=== PATIENT | female | born 1950 | race Caucasian/White ===

== ENCOUNTER → 2017-11-12 11:44 | Outpatient (CLI) | payer MEDICARE, OTHER, SELFPAY ==
[2017-11-12 12:37] LABS: Absolute Lymphocyte Count 1.28 X10^3/ul (0.83-4.51); Absolute Neutrophil Count 4.8 X10^3/uL (2.0-7.7); Basophil# 0.01 X10^3/uL; Basophil% 0.2 % (0-1); Eosinophil# 0.05 X10^3/uL; Eosinophils% 0.8 % (0-5); Hematocrit 41.1 % (37-47); Hemoglobin 14.1 g/dl (12.0-15.0); Lymphocyte # 1.28 X10^3/ul (4.0); Lymphocyte % 19.6 % (19-41); Mean Corp Hgb Conc 34.3 g/gl (32-36); Mean Corpuscular Hgb 29.1 pg (27.0-32.0); Mean Corpuscular Volume 84.9 fL (81-99); Mean Platelet Vol. 9.9 fl (6.2-12.0); Monocyte# 0.39 X10^3/uL; Neutrophil % 73.2 % (47-70); Platelet Count 200 K/mm3 (150-450); RBC Distribution Width CV 13.4 % (11.6-14.6); RBC Distribution Width SD 41.7 fl (35.1-43.9); Red Blood Count 4.84 M/mm3 (4.2-5.4); White Blood Count 6.5 K/mm3 (4.4-11.0)
[2017-11-12 12:39] LABS: POSITIVE COUNT NO; POSITIVE DIFFERENTIAL NO; POSITIVE MORPHOLOGY NO
[2017-11-12 12:58] LABS: ALB/GLOB Ratio 1.1 RATIO (0.9-2.4); AST(SGOT) 17 U/L (15-37); Alanine Aminotransfer ALT/SGPT 25 U/L (13-56); Albumin, Serum 3.7 g/dL (3.2-5.0); Alkaline Phosphatase 92 U/L (45-117); Anion Gap 6 (5-15); BUN 18 mg/dL (7-18); Calcium,Total 9.1 mg/dL (8.5-10.1); Chloride 97 mmol/L (98-107); Creatinine, Serum 0.78 mg/dL (0.55-1.02); EST Glomerular Filtration Rate 77 mL/min (>60); Est Glom Filt Rate - Afr Amer 94 mL/min (>60); Globulin 3.4 g/dL (2.2-4.2); Glucose 101 mg/dL (74-106); Potassium 4.9 mmol/L (3.5-5.1); Protein, Total 7.1 g/dL (6.4-8.2); Sodium Level 134 mmol/L (136-145); Thyroid Stim Hormone (TSH) 0.77 uIU/mL (0.358-3.74)
[2017-11-12 13:16] LABS: Vitamin D,25 Hydroxy 57.4 ng/mL (29.95-100.01)
[2017-11-13 10:10] LABS: Hep C Antibodies <0.1 s/co ratio (0.0-0.9)
== END ==
PROVIDERS: Family Provider Family Medicine Geriatric Medicine; PCP Family Medicine Geriatric Medicine; Visit Provider Family Medicine Geriatric Medicine
DX: I10 Essential (primary) hypertension (principal); E55.9 Vitamin D deficiency, unspecified; Z13.89 Encounter for screening for other disorder
CPT/HCPCS: 36415; 80053; 82306; 84443; 85025; 86803

== ENCOUNTER → 2018-05-13 13:15 | Outpatient (CLI) | payer MEDICARE, OTHER, SELFPAY ==
[2018-05-13 17:26] LABS: Absolute Lymphocyte Count 1.35 X10^3/ul (0.83-4.51); Absolute Neutrophil Count 3.5 X10^3/uL (2.0-7.7); Basophil# 0.02 X10^3/uL; Basophil% 0.4 % (0-1); Eosinophil# 0.13 X10^3/uL; Eosinophils% 2.4 % (0-5); Hematocrit 38.9 % (37-47); Hemoglobin 13.5 g/dl (12.0-15.0); Lymphocyte # 1.35 X10^3/ul (4.0); Lymphocyte % 24.7 % (19-41); Mean Corp Hgb Conc 34.7 g/gl (32-36); Mean Corpuscular Hgb 29.7 pg (27.0-32.0); Mean Corpuscular Volume 85.5 fL (81-99); Mean Platelet Vol. 10.4 fl (6.2-12.0); Monocyte% 9.1 % (0-10); Neutrophil # 3.46 X10^3/uL (2.7-7.7); Neutrophil % 63.2 % (47-70); Platelet Count 231 K/mm3 (150-450); RBC Distribution Width CV 13.3 % (11.6-14.6); RBC Distribution Width SD 40.9 fl (35.1-43.9); Red Blood Count 4.55 M/mm3 (4.2-5.4); White Blood Count 5.5 K/mm3 (4.4-11.0)
[2018-05-13 17:39] LABS: AST(SGOT) 17 U/L (15-37); Alanine Aminotransfer ALT/SGPT 24 U/L (13-56); Albumin, Serum 3.4 g/dL (3.2-5.0); Alkaline Phosphatase 84 U/L (45-117); Anion Gap 9 (5-15); BUN 14 mg/dL (7-18); BUN/Creat Ratio 17.5 RATIO (10-20); Calcium,Total 8.5 mg/dL (8.5-10.1); Chloride 97 mmol/L (98-107); EST Glomerular Filtration Rate 76 mL/min (>60); Est Glom Filt Rate - Afr Amer 92 mL/min (>60); Globulin 3.3 g/dL (2.2-4.2); Glucose 89 mg/dL (74-106); Potassium 4.3 mmol/L (3.5-5.1); Protein, Total 6.7 g/dL (6.4-8.2); Sodium Level 134 mmol/L (136-145); Thyroid Stim Hormone (TSH) 0.93 uIU/mL (0.358-3.74)
[2018-05-13 17:44] LABS: Vitamin D,25 Hydroxy 43.8 ng/mL (29.95-100.01)
[2018-05-13 17:46] LABS: POSITIVE COUNT NO; POSITIVE DIFFERENTIAL NO; POSITIVE MORPHOLOGY NO
== END ==
PROVIDERS: Family Provider Family Medicine Geriatric Medicine; PCP Family Medicine Geriatric Medicine; Visit Provider Family Medicine Geriatric Medicine
DX: I10 Essential (primary) hypertension (principal); E55.9 Vitamin D deficiency, unspecified
CPT/HCPCS: 36415; 80053; 82306; 84443; 85025

== ENCOUNTER → 2018-11-15 | Outpatient (CLI) | payer MEDICARE, OTHER, SELFPAY ==
[2018-11-15 12:43] LABS: Absolute Lymphocyte Count 1.28 X10^3/ul (0.83-4.51); Absolute Neutrophil Count 5.6 X10^3/uL (2.0-7.7); Basophil# 0.02 X10^3/uL; Basophil% 0.3 % (0-1); Eosinophil# 0.15 X10^3/uL; Hemoglobin 14.2 g/dl (12.0-15.0); Lymphocyte # 1.28 X10^3/ul (4.0); Lymphocyte % 16.8 % (19-41); Mean Corp Hgb Conc 34.6 g/gl (32-36); Mean Corpuscular Hgb 29.1 pg (27.0-32.0); Mean Platelet Vol. 9.7 fl (6.2-12.0); Monocyte# 0.51 X10^3/uL; Monocyte% 6.7 % (0-10); Neutrophil # 5.64 X10^3/uL (2.7-7.7); Neutrophil % 74.1 % (47-70); Platelet Count 226 K/mm3 (150-450); Red Blood Count 4.88 M/mm3 (4.2-5.4); White Blood Count 7.6 K/mm3 (4.4-11.0)
[2018-11-15 12:48] LABS: POSITIVE COUNT NO; POSITIVE DIFFERENTIAL NO; POSITIVE MORPHOLOGY NO
[2018-11-15 13:17] LABS: Vitamin D,25 Hydroxy 55.9 ng/mL (29.95-100.01)
[2018-11-15 13:34] LABS: ALB/GLOB Ratio 1.1 RATIO (0.9-2.4); AST(SGOT) 18 U/L (15-37); Alanine Aminotransfer ALT/SGPT 23 U/L (13-56); Albumin, Serum 3.7 g/dL (3.2-5.0); Alkaline Phosphatase 97 U/L (45-117); Anion Gap 6 (5-15); BUN 16 mg/dL (7-18); BUN/Creat Ratio 20.1 RATIO (10-20); Calcium,Total 8.9 mg/dL (8.5-10.1); Chloride 97 mmol/L (98-107); EST Glomerular Filtration Rate 76 mL/min (>60); Est Glom Filt Rate - Afr Amer 92 mL/min (>60); Globulin 3.4 g/dL (2.2-4.2); Glucose 95 mg/dL (74-106); Potassium 4.3 mmol/L (3.5-5.1); Protein, Total 7.1 g/dL (6.4-8.2); Sodium Level 132 mmol/L (136-145); Thyroid Stim Hormone (TSH) 0.91 uIU/mL (0.358-3.74)
== END | disposition home or self-care (01) ==
PROVIDERS: Family Provider Family Medicine Geriatric Medicine; PCP Family Medicine Geriatric Medicine; Referring Provider Family Medicine Geriatric Medicine; Visit Provider Family Medicine Geriatric Medicine
DX: I10 Essential (primary) hypertension (principal); E55.9 Vitamin D deficiency, unspecified
CPT/HCPCS: 36415; 80053; 82306; 84443; 85025

== ENCOUNTER → 2019-02-26 | Outpatient (CLI) | payer MEDICARE, OTHER, SELFPAY ==
[2019-02-26 17:09] LABS: Absolute Lymphocyte Count 1.27 X10^3/uL (0.83-4.51); Absolute Neutrophil Count 5.4 X10^3/uL (2.0-7.7); Basophil# 0.02 X10^3/uL; Basophil% 0.3 % (0-1); Eosinophil# 0.09 X10^3/uL; Eosinophils% 1.2 % (0-5); Hematocrit 39.5 % (37-47); Hemoglobin 13.7 g/dL (12.0-15.0); Lymphocyte # 1.27 X10^3/ul (4.0); Lymphocyte % 17.3 % (19-41); Mean Corp Hgb Conc 34.7 g/dL (32-36); Mean Corpuscular Hgb 29.8 pg (27.0-32.0); Mean Corpuscular Volume 85.9 fL (81-99); Mean Platelet Vol. 10.1 fl (6.2-12.0); Monocyte# 0.53 X10^3/uL; Monocyte% 7.2 % (0-10); NRBC Flagged by Analyzer 0 % (0-5); Neutrophil # 5.39 X10^3/uL (2.7-7.7); Neutrophil % 73.6 % (47-70); Platelet Count 244 K/mm3 (150-450); RBC Distribution Width CV 12.4 % (11.6-14.6); RBC Distribution Width SD 38.5 fl (35.1-43.9); White Blood Count 7.3 K/mm3 (4.4-11.0)
[2019-02-26 17:27] LABS: Anion Gap 6 (5-15); BUN 16 mg/dL (7-18); BUN/Creat Ratio 21.9 RATIO (10-20); Chloride 96 mmol/L (98-107); Creatinine, Serum 0.73 mg/dL (0.55-1.02); EST Glomerular Filtration Rate 84 mL/min (>60); Est Glom Filt Rate - Afr Amer 101 mL/min (>60); Glucose 95 mg/dL (74-106); Potassium 3.9 mmol/L (3.5-5.1); Sodium Level 132 mmol/L (136-145)
== END | disposition home or self-care (01) ==
PROVIDERS: Family Provider Family Medicine Geriatric Medicine; PCP Family Medicine Geriatric Medicine; Visit Provider Family Medicine Geriatric Medicine
DX: I10 Essential (primary) hypertension (principal)
CPT/HCPCS: 36415; 80048; 85025

== ENCOUNTER → 2019-03-12 | Outpatient (CLI) | payer MEDICARE, OTHER, SELFPAY ==
--- NOTE | 2019-03-12 09:32 | STRESSREP ---
Stress Test Report Date: 03-12-19 Procedure: Exercise tolerance test/imaging study Indications: Abnormal ECG; preoperative cardiovascular evaluation Consent: Per the patient Procedure: The patient exercised on a Scout protocol for 7 minutes completing Stage II and 1 minute of Stage III achieving a peak heart rate of 127 bpm (85 % predicted maximal heart rate) with a peak blood pressure 174/84 mmHg and a peak MET capacity of 8 METs. The baseline ECG demonstrated normal sinus rhythm. The peak exercise ECG demonstrated no obvious ECG changes. There was a rare PAC pretest. The functional capacity was considered good. There was no complaint of chest discomfort during exercise or recovery. The examination was discontinued secondary to dyspnea. Impression: 1. Technically adequate (percent predicted maximal heart rate greater than 85%) exercise tolerance test 2. Peak exercise ECG with no obvious ECG changes 3. There was a rare PAC pretest 4. Nuclear images pending Myocardial perfusion imaging study: Technique: The patient was injected with 9.3 mCi of technetium 99m Cardiolite and subsequently rest SPECT Cardiolite nuclear imaging was obtained in the horizontal long, vertical long, and short axis views. The patient exercised on a Scout protocol for 7 minutes completing Stage II and 1 minute of Stage III achieving a peak heart rate of 127 bpm (85 % predicted maximal heart rate) with a peak blood pressure 174/84 mmHg and a peak MET capacity of 8 METs. The patient was injected with 29.6 mCi of technetium 99m Cardiolite and subsequently stress SPECT Cardiolite nuclear imaging was obtained in the horizontal long, vertical long, and short axis views. A gated Cardiolite study at peak stress was obtained. Interpretation: Rest and stress SPECT Cardiolite nuclear imaging status post realignment, normalization, and attenuation correction, demonstrates the appearance at rest of areas of diminished tracer uptake in the distal anterior, anteroseptal, and anterior apical segments which appear to improve and/or normalize following stress. There is end systolic thickening and brightening. The gated Cardiolite study demonstrates myocardial thickening and inward wall motion. The reported LVEF is 78 %. Impression: 1. Rest and stress SPECT Cardiolite nuclear imaging demonstrate the appearance of myocardial perfusion changes at rest which appear to improve and/or normalize following stress appearing compatible with the effects of shifting soft tissue attenuation/artifact with no myocardial perfusion changes considered diagnostic for associated stress-induced myocardial ischemia. 2. The gated Cardiolite study reports an LVEF of 78 %. This note was generated with Dragon dictation software. It may contain incorrect words, spelling, and punctuation that were not noted in checking the note before signing.
== END | disposition home or self-care (01) ==
LOC: CVS 06:35
PROVIDERS: Family Provider Family Medicine Geriatric Medicine; PCP Family Medicine Geriatric Medicine; Referring Provider Family Medicine Geriatric Medicine; Visit Provider Family Medicine Geriatric Medicine
DX: R94.31 Abnormal electrocardiogram [ECG] [EKG] (principal)
CPT/HCPCS: 78452; 93017; A9500; A4216

== ENCOUNTER → 2019-05-12 | Outpatient (CLI) | payer MEDICARE, OTHER, SELFPAY ==
--- NOTE | 2019-05-12 15:44 | BI_ITS ---
MAMMOGRAPHY - BILATERAL SCREENING REASON FOR EXAM: Female, 69 years old. Routine annual screening examination. PERTINENT HISTORY: Non-contributory. TECHNIQUE: Digital bilateral breast poonam (3D mammographic acquisition) in the CC and MLO projections. 2-D mediolateral oblique (MLO) and craniocaudad (CC) views of both breasts were obtained. CAD: Full Field Digital Mammography with Computer Added Detection was performed. COMPARISON: Comparison is made with prior study dated May 04, 2017 and April 05, 2016. FINDINGS: Breast Composition: The breasts are heterogeneously dense, which may obscure small masses. There are no dominant masses or suspicious calcifications. Stable scattered benign-appearing macrocalcifications bilaterally. No other significant abnormalities are identified. There has been no significant change since the prior study. BI/SCREEN MAMM (CAD) W/POONAM BILAT IMPRESSION: Stable bilateral screening mammogram. Yearly follow-up mammogram recommended. (A) ASSESSMENT CATEGORY: BIRADS Category 2: Benign. A letter regarding these results will be sent to the patient by the facility within 30 days. Approximately 10% of breast cancers are not detected by mammography. A normal mammogram should not delay biopsy of a clinically suspicious abnormality. [id number] Electronically Signed: David Zheng, at 8:17 EST , Service support ,
== END | disposition home or self-care (01) ==
LOC: OPBI 15:43
PROVIDERS: Family Provider Family Medicine Geriatric Medicine; PCP Family Medicine Geriatric Medicine; Referring Provider Family Medicine Geriatric Medicine; Visit Provider Family Medicine Geriatric Medicine
DX: Z12.31 Encounter for screening mammogram for malignant neoplasm of breast (principal)
CPT/HCPCS: 77063; 77067

== ENCOUNTER → 2019-05-16 10:22 | Outpatient (CLI) | payer MEDICARE, OTHER, SELFPAY ==
[2019-05-16 12:25] LABS: Absolute Lymphocyte Count 1.32 X10^3/uL (0.83-4.51); Absolute Neutrophil Count 4.6 X10^3/uL (2.0-7.7); Basophil# 0.02 X10^3/uL; Basophil% 0.3 % (0-1); Eosinophil# 0.09 X10^3/uL; Eosinophils% 1.4 % (0-5); Hematocrit 41.3 % (37-47); Hemoglobin 14.2 g/dL (12.0-15.0); Lymphocyte # 1.32 X10^3/ul (4.0); Mean Corp Hgb Conc 34.4 g/dL (32-36); Mean Corpuscular Hgb 29.2 pg (27.0-32.0); Mean Platelet Vol. 9.8 fl (6.2-12.0); Monocyte% 7.6 % (0-10); NRBC Flagged by Analyzer 0 % (0-5); Neutrophil # 4.61 X10^3/uL (2.7-7.7); Neutrophil % 69.8 % (47-70); Platelet Count 252 K/mm3 (150-450); RBC Distribution Width CV 12.9 % (11.6-14.6); RBC Distribution Width SD 39.2 fl (35.1-43.9); Red Blood Count 4.86 M/mm3 (4.2-5.4); White Blood Count 6.6 K/mm3 (4.4-11.0)
[2019-05-16 12:51] LABS: Vitamin D,25 Hydroxy 55.8 ng/mL (29.95-100.01)
[2019-05-16 12:58] LABS: ALB/GLOB Ratio 1.2 RATIO (0.9-2.4); AST(SGOT) 16 U/L (15-37); Alanine Aminotransfer ALT/SGPT 24 U/L (13-56); Albumin, Serum 3.8 g/dL (3.2-5.0); Alkaline Phosphatase 84 U/L (45-117); Anion Gap 6 (5-15); BUN 14 mg/dL (7-18); BUN/Creat Ratio 18.4 RATIO (10-20); Chloride 99 mmol/L (98-107); Creatinine, Serum 0.76 mg/dL (0.55-1.02); EST Glomerular Filtration Rate 80 mL/min (>60); Est Glom Filt Rate - Afr Amer 96 mL/min (>60); Globulin 3.2 g/dL (2.2-4.2); Glucose 87 mg/dL (74-106); Potassium 4.2 mmol/L (3.5-5.1); Sodium Level 134 mmol/L (136-145); Thyroid Stim Hormone (TSH) 1.38 uIU/mL (0.358-3.74)
== END ==
PROVIDERS: Family Provider Family Medicine Geriatric Medicine; PCP Family Medicine Geriatric Medicine; Visit Provider Family Medicine Geriatric Medicine
DX: I10 Essential (primary) hypertension (principal); E55.9 Vitamin D deficiency, unspecified
CPT/HCPCS: 36415; 80053; 82306; 84443; 85025

== ENCOUNTER → 2019-05-30 14:40 | Outpatient (CLI) | payer MEDICARE, OTHER, SELFPAY ==
--- NOTE | 2019-05-30 14:56 | VDLE_ITS ---
Reason For Study: swelling RIGHT LEFT GSV is normal. CFV is compressible, spontaneous, phasic, CFV is compressible, spontaneous, phasic, competent, and demonstrates normal competent and demonstrates normal augmentation. augmentation. FV is compressible, spontaneous, phasic, competent and demonstrates normal augmentation. POP V is compressible, spontaneous, phasic, competent and demonstrates normal augmentation. T/P Trunk is compressible. PTV is compressible. RT PerV is compressible. Procedure Exam performed in department. The exam was diagnostic. A preliminary report was called and/or faxed to Dr. Anurag Starks. Interpretation Summary Deep veins of the right lower extremity are patent and compressible segmentally. There is no evidence of right lower extremity deep vein thrombosis. Valvular competence appears intact within the proximal deep venous system on the right . The right great saphenous vein appears patent and compressible segmentally. Ordering Physician: Anurag Starks Performed By: Reji Ocasio RVT
== END ==
PROVIDERS: Family Provider Family Medicine Geriatric Medicine; PCP Family Medicine Geriatric Medicine; Referring Provider Orthopaedic Surgery; Visit Provider Orthopaedic Surgery
DX: R22.41 Localized swelling, mass and lump, right lower limb (principal); M79.661 Pain in right lower leg
CPT/HCPCS: 93971

== ENCOUNTER → 2019-11-21 | Outpatient (CLI) | payer MEDICARE, OTHER, SELFPAY | END | disposition home or self-care (01) | LOC: POLAB3 10:07 → LAB.FUTURE 12:02 | PROVIDERS: PCP Family Medicine Geriatric Medicine; Visit Provider Family Medicine Geriatric Medicine | DX: E55.9 Vitamin D deficiency, unspecified (principal); I10 Essential (primary) hypertension ==

== ENCOUNTER → 2020-05-25 10:41 | Outpatient (CLI) | payer MEDICARE, OTHER, SELFPAY ==
[2020-05-25 12:32] LABS: Absolute Lymphocyte Count 0.95 X10^3/uL (0.83-4.51); Absolute Neutrophil Count 5.1 X10^3/uL (2.0-7.7); Basophil# 0.04 X10^3/uL; Basophil% 0.6 % (0-1); Eosinophil# 0.18 X10^3/uL; Eosinophils% 2.6 % (0-5); Hematocrit 40.4 % (37-47); Hemoglobin 13.5 g/dL (12.0-15.0); Lymphocyte # 0.95 X10^3/ul (4.0); Lymphocyte % 13.9 % (19-41); Mean Corp Hgb Conc 33.4 g/dL (32-36); Mean Corpuscular Hgb 29.3 pg (27.0-32.0); Mean Corpuscular Volume 87.6 fL (81-99); Mean Platelet Vol. 10.1 fl (6.2-12.0); Monocyte# 0.54 X10^3/uL; Monocyte% 7.9 % (0-10); NRBC Flagged by Analyzer 0 % (0-5); Neutrophil % 74.7 % (47-70); Platelet Count 222 K/mm3 (150-450); RBC Distribution Width CV 12.7 % (11.6-14.6); RBC Distribution Width SD 40.8 fl (35.1-43.9); Red Blood Count 4.61 M/mm3 (4.2-5.4); White Blood Count 6.8 K/mm3 (4.4-11.0)
[2020-05-25 12:46] LABS: Vitamin D,25 Hydroxy 51.6 ng/mL
[2020-05-25 12:58] LABS: ALB/GLOB Ratio 0.8 RATIO (0.9-2.4); AST(SGOT) 16 U/L (15-37); Alanine Aminotransfer ALT/SGPT 22 U/L (13-56); Albumin, Serum 3.3 g/dL (3.2-5.0); Alkaline Phosphatase 91 U/L (45-117); Anion Gap 3 (5-15); BUN 14 mg/dL (7-18); BUN/Creat Ratio 19.1 RATIO (10-20); Calcium,Total 9.1 mg/dL (8.5-10.1); Chloride 98 mmol/L (98-107); Creatinine, Serum 0.73 mg/dL (0.55-1.02); EST Glomerular Filtration Rate 83 mL/min (>60); Est Glom Filt Rate - Afr Amer 100 mL/min (>60); Globulin 4.1 g/dL (2.2-4.2); Glucose 88 mg/dL (74-106); Potassium 4.5 mmol/L (3.5-5.1); Protein, Total 7.4 g/dL (6.4-8.2); Sodium Level 132 mmol/L (136-145); Thyroid Stim Hormone (TSH) 1.55 uIU/mL (0.358-3.74)
== END ==
PROVIDERS: PCP Family Medicine Geriatric Medicine; Visit Provider Family Medicine Geriatric Medicine
DX: E55.9 Vitamin D deficiency, unspecified (principal); I10 Essential (primary) hypertension
CPT/HCPCS: 36415; 80053; 82306; 84443; 85025

== ENCOUNTER → 2020-06-04 13:51 | Outpatient (CLI) | payer MEDICARE, OTHER, SELFPAY ==
--- NOTE | 2020-06-04 13:53 | BI_ITS ---
MAMMOGRAPHY - BILATERAL SCREENING REASON FOR EXAM: Female, 70 years old. Routine annual screening examination. PERTINENT HISTORY: Non-contributory. TECHNIQUE: Digital bilateral breast poonam (3D mammographic acquisition) in the CC and MLO projections. 2-D mediolateral oblique (MLO) and craniocaudad (CC) views of both breasts were obtained. CAD: Full Field Digital Mammography with Computer Added Detection was performed. COMPARISON: Comparison is made with prior study dated 05/12/2019 and 05/04/2017. FINDINGS: Breast Composition: The breasts are heterogeneously dense, which may obscure small masses. There are no dominant masses or suspicious calcifications. No other significant abnormalities are identified. There has been no significant change since the prior study. BI/SCREEN MAMM (CAD) W/POONAM BILAT IMPRESSION: Stable bilateral screening mammogram. Yearly follow-up mammogram recommended. (A) ASSESSMENT CATEGORY: BIRADS Category 1: Negative. A letter regarding these results will be sent to the patient by the facility within 30 days. Approximately 10% of breast cancers are not detected by mammography. A normal mammogram should not delay biopsy of a clinically suspicious abnormality. [id number] Electronically Signed: David Zheng, at 15:06 EST , Service support ,
== END ==
PROVIDERS: PCP Family Medicine Geriatric Medicine; Referring Provider Family Medicine Geriatric Medicine; Visit Provider Family Medicine Geriatric Medicine
DX: Z12.31 Encounter for screening mammogram for malignant neoplasm of breast (principal)
CPT/HCPCS: 77063; 77067

== ENCOUNTER → 2020-12-09 10:29 | Outpatient (CLI) | payer MEDICARE, OTHER, SELFPAY ==
[2020-12-09 11:57] LABS: Absolute Lymphocyte Count 1.11 X10^3/uL (0.83-4.51); Absolute Neutrophil Count 3.5 X10^3/uL (2.0-7.7); Basophil# 0.03 X10^3/uL; Basophil% 0.6 % (0-1); Eosinophils% 1.9 % (0-5); Hematocrit 42.2 % (37-47); Hemoglobin 14.1 g/dL (12.0-15.0); Lymphocyte # 1.11 X10^3/ul (0.83-4.51); Lymphocyte % 21.2 % (19-41); Mean Corp Hgb Conc 33.4 g/dL (32-36); Mean Corpuscular Hgb 29.3 pg (27.0-32.0); Mean Corpuscular Volume 87.6 fL (81-99); Mean Platelet Vol. 9.7 fl (6.2-12.0); Monocyte# 0.44 X10^3/uL; Monocyte% 8.4 % (0-10); NRBC Flagged by Analyzer 0 % (0-5); Neutrophil # 3.53 X10^3/uL (2.7-7.7); Neutrophil % 67.5 % (47-70); Platelet Count 217 K/mm3 (150-450); RBC Distribution Width CV 12.6 % (11.6-14.6); RBC Distribution Width SD 39.9 fl (35.1-43.9); Red Blood Count 4.82 M/mm3 (4.2-5.4); White Blood Count 5.2 K/mm3 (4.4-11.0)
[2020-12-09 12:20] LABS: ALB/GLOB Ratio 1.1 RATIO (0.9-2.4); AST(SGOT) 21 U/L (15-37); Alanine Aminotransfer ALT/SGPT 28 U/L (13-56); Albumin, Serum 3.7 g/dL (3.2-5.0); Alkaline Phosphatase 85 U/L (45-117); Anion Gap 4 (5-15); BUN 16 mg/dL (7-18); BUN/Creat Ratio 18.3 RATIO (10-20); Calcium,Total 9.1 mg/dL (8.5-10.1); Chloride 102 mmol/L (98-107); Creatinine, Serum 0.88 mg/dL (0.55-1.02); EST Glomerular Filtration Rate 68 mL/min (>60); Est Glom Filt Rate - Afr Amer 82 mL/min (>60); Globulin 3.3 g/dL (2.2-4.2); Glucose 92 mg/dL (74-106); Potassium 4.6 mmol/L (3.5-5.1); Sodium Level 135 mmol/L (136-145); Thyroid Stim Hormone (TSH) 0.97 uIU/mL (0.358-3.74)
[2020-12-09 12:30] LABS: Vitamin D,25 Hydroxy 62.5 ng/mL
== END ==
PROVIDERS: PCP Family Medicine Geriatric Medicine; Visit Provider Family Medicine Geriatric Medicine
DX: I10 Essential (primary) hypertension (principal); E55.9 Vitamin D deficiency, unspecified
CPT/HCPCS: 36415; 80053; 82306; 84443; 85025

== ENCOUNTER → 2021-06-02 09:35 | Outpatient (CLI) | payer MEDICARE, OTHER, SELFPAY ==
[2021-06-02 12:06] LABS: Absolute Lymphocyte Count 1.09 X10^3/uL (0.83-4.51); Absolute Neutrophil Count 4.1 X10^3/uL (2.0-7.7); Basophil# 0.04 X10^3/uL; Basophil% 0.7 % (0-1); Eosinophil# 0.12 X10^3/uL; Hemoglobin 14.2 g/dL (12.0-15.0); Lymphocyte # 1.09 X10^3/ul (0.83-4.51); Lymphocyte % 18.4 % (19-41); Mean Corp Hgb Conc 34.6 g/dL (32-36); Mean Corpuscular Volume 86.5 fL (81-99); Mean Platelet Vol. 9.9 fl (6.2-12.0); Monocyte% 8.5 % (0-10); NRBC Flagged by Analyzer 0 % (0-5); Neutrophil # 4.13 X10^3/uL (2.7-7.7); Neutrophil % 69.9 % (47-70); Platelet Count 202 K/mm3 (150-450); RBC Distribution Width CV 12.8 % (11.6-14.6); RBC Distribution Width SD 40.2 fl (35.1-43.9); Red Blood Count 4.74 M/mm3 (4.2-5.4); White Blood Count 5.9 K/mm3 (4.4-11.0)
[2021-06-02 12:25] LABS: Vitamin D,25 Hydroxy 49.4 ng/mL
[2021-06-02 12:31] LABS: ALB/GLOB Ratio 0.9 RATIO (0.9-2.4); AST(SGOT) 22 U/L (15-37); Alanine Aminotransfer ALT/SGPT 31 U/L (13-56); Albumin, Serum 3.3 g/dL (3.2-5.0); Alkaline Phosphatase 91 U/L (45-117); Anion Gap 6 (5-15); BUN 15 mg/dL (7-18); BUN/Creat Ratio 17.3 RATIO (10-20); Calcium,Total 9.1 mg/dL (8.5-10.1); Chloride 102 mmol/L (98-107); Creatinine, Serum 0.87 mg/dL (0.55-1.02); EST Glomerular Filtration Rate 68 mL/min (>60); Est Glom Filt Rate - Afr Amer 83 mL/min (>60); Globulin 3.8 g/dL (2.2-4.2); Glucose 65 mg/dL (74-106); Potassium 4.6 mmol/L (3.5-5.1); Protein, Total 7.1 g/dL (6.4-8.2); Sodium Level 137 mmol/L (136-145); Thyroid Stim Hormone (TSH) 1.45 uIU/mL (0.358-3.74)
== END ==
PROVIDERS: PCP Family Medicine Geriatric Medicine; Visit Provider Family Medicine Geriatric Medicine
DX: E55.9 Vitamin D deficiency, unspecified (principal); I10 Essential (primary) hypertension
CPT/HCPCS: 36415; 80053; 82306; 84443; 85025

== ENCOUNTER → 2021-06-14 12:13 | Outpatient (CLI) | payer MEDICARE, OTHER, SELFPAY ==
--- NOTE | 2021-06-14 12:16 | BI_ITS ---
MAMMOGRAPHY - BILATERAL SCREENING REASON FOR EXAM: Female, 71 years old. Routine annual screening examination. PERTINENT HISTORY: Non-contributory. TECHNIQUE: Digital bilateral breast poonam (3D mammographic acquisition) in the CC and MLO projections. 2-D mediolateral oblique (MLO) and craniocaudad (CC) views of both breasts were obtained. CAD: Full Field Digital Mammography with Computer Added Detection was performed. COMPARISON: Comparison is made with prior study dated 06/04/2020 and 05/12/2019. FINDINGS: Breast Composition: The breasts are heterogeneously dense, which may obscure small masses. There are no dominant masses or suspicious calcifications. Stable benign-appearing bilateral axillary lymph nodes. No other significant abnormalities are identified. There has been no significant change since the prior study. BI/SCRN MAMM (CAD)W/POONAM BILAT IMPRESSION: Stable bilateral screening mammogram. Yearly follow-up mammogram recommended. (A) ASSESSMENT CATEGORY: BIRADS Category 2: Benign. A letter regarding these results will be sent to the patient by the facility within 30 days. Approximately 10% of breast cancers are not detected by mammography. A normal mammogram should not delay biopsy of a clinically suspicious abnormality. [id number] Electronically Signed: David Zheng MD at 13:05 EST , Service support ,
== END ==
PROVIDERS: PCP Family Medicine Geriatric Medicine; Referring Provider Family Medicine Geriatric Medicine; Visit Provider Family Medicine Geriatric Medicine
DX: Z12.31 Encounter for screening mammogram for malignant neoplasm of breast (principal)
CPT/HCPCS: 77063; 77067

== ENCOUNTER → 2021-12-12 | Outpatient (CLI) | payer MEDICARE, OTHER, SELFPAY ==
[2021-12-12 12:51] LABS: Absolute Neutrophil Count 3.3 X10^3/uL (2.0-7.7); Basophil# 0.02 X10^3/uL; Basophil% 0.4 % (0-1); Eosinophil# 0.04 X10^3/uL; Eosinophils% 0.8 % (0-5); Hematocrit 42.3 % (37-47); Hemoglobin 14.2 g/dL (12.0-15.0); Lymphocyte % 22.8 % (19-41); Mean Corp Hgb Conc 33.6 g/dL (32-36); Mean Corpuscular Hgb 29.4 pg (27.0-32.0); Mean Corpuscular Volume 87.6 fL (81-99); Mean Platelet Vol. 10.2 fl (6.2-12.0); Monocyte# 0.34 X10^3/uL; Monocyte% 7.1 % (0-10); NRBC Flagged by Analyzer 0 % (0-5); Neutrophil # 3.31 X10^3/uL (2.7-7.7); Neutrophil % 68.7 % (47-70); Platelet Count 218 K/mm3 (150-450); RBC Distribution Width CV 13.2 % (11.6-14.6); RBC Distribution Width SD 42.3 fl (35.1-43.9); Red Blood Count 4.83 M/mm3 (4.2-5.4); White Blood Count 4.8 K/mm3 (4.4-11.0)
[2021-12-12 12:53] LABS: Vitamin D,25 Hydroxy 70.2 ng/mL
[2021-12-12 13:45] LABS: ALB/GLOB Ratio 1.2 RATIO (0.9-2.4); AST(SGOT) 20 U/L (15-37); Alanine Aminotransfer ALT/SGPT 27 U/L (13-56); Albumin, Serum 3.6 g/dL (3.2-5.0); Alkaline Phosphatase 79 U/L (45-117); Anion Gap 6 (5-15); BUN 13 mg/dL (7-18); BUN/Creat Ratio 14.7 RATIO (10-20); Calcium,Total 9.1 mg/dL (8.5-10.1); Chloride 104 mmol/L (98-107); Creatinine, Serum 0.89 mg/dL (0.55-1.02); EST Glomerular Filtration Rate 66 mL/min (>60); Est Glom Filt Rate - Afr Amer 80 mL/min (>60); Glucose 88 mg/dL (74-106); Potassium 4.7 mmol/L (3.5-5.1); Protein, Total 6.6 g/dL (6.4-8.2); Sodium Level 137 mmol/L (136-145); Thyroid Stim Hormone (TSH) 0.65 uIU/mL (0.358-3.74)
== END | disposition home or self-care (01) ==
LOC: POLAB3 09:20
PROVIDERS: PCP Family Medicine Geriatric Medicine; Visit Provider Family Medicine Geriatric Medicine
DX: I10 Essential (primary) hypertension (principal); E55.9 Vitamin D deficiency, unspecified
CPT/HCPCS: 36415; 80053; 82306; 84443; 85025

== ENCOUNTER → 2022-06-12 | Outpatient (CLI) | payer MEDICARE, OTHER, SELFPAY ==
[2022-06-12 17:19] LABS: Absolute Lymphocyte Count 1.24 X10^3/uL (0.83-4.51); Basophil# 0.03 X10^3/uL; Basophil% 0.4 % (0-1); Eosinophils% 1.5 % (0-5); Hematocrit 42.7 % (37-47); Lymphocyte # 1.24 X10^3/ul (0.83-4.51); Mean Corp Hgb Conc 32.8 g/dL (32-36); Mean Corpuscular Hgb 28.9 pg (27.0-32.0); Mean Corpuscular Volume 88.2 fL (81-99); Mean Platelet Vol. 10.4 fl (6.2-12.0); Monocyte% 7.3 % (0-10); NRBC Flagged by Analyzer 0 % (0-5); Neutrophil % 72.5 % (47-70); Platelet Count 229 K/mm3 (150-450); RBC Distribution Width CV 13.6 % (11.6-14.6); Red Blood Count 4.84 M/mm3 (4.2-5.4); White Blood Count 6.9 K/mm3 (4.4-11.0)
[2022-06-12 17:27] LABS: Vitamin D,25 Hydroxy 45.2 ng/mL
[2022-06-12 17:40] LABS: AST(SGOT) 18 U/L (15-37); Alanine Aminotransfer ALT/SGPT 27 U/L (13-56); Albumin, Serum 3.4 g/dL (3.2-5.0); Alkaline Phosphatase 91 U/L (45-117); Anion Gap 8 (5-15); BUN 19 mg/dL (7-18); BUN/Creat Ratio 20.7 RATIO (10-20); Calcium,Total 8.6 mg/dL (8.5-10.1); Chloride 100 mmol/L (98-107); Creatinine, Serum 0.92 mg/dL (0.55-1.02); EST Glomerular Filtration Rate 64 mL/min (>60); Est Glom Filt Rate - Afr Amer 77 mL/min (>60); Globulin 3.3 g/dL (2.2-4.2); Glucose 84 mg/dL (74-106); Potassium 4.2 mmol/L (3.5-5.1); Protein, Total 6.7 g/dL (6.4-8.2); Sodium Level 135 mmol/L (136-145); Thyroid Stim Hormone (TSH) 0.83 uIU/mL (0.358-3.74)
== END | disposition home or self-care (01) ==
LOC: POLAB3 13:04
PROVIDERS: PCP Family Medicine Geriatric Medicine; Visit Provider Family Medicine Geriatric Medicine
DX: I10 Essential (primary) hypertension (principal); E55.9 Vitamin D deficiency, unspecified
CPT/HCPCS: 36415; 80053; 82306; 84443; 85025

== ENCOUNTER → 2022-06-15 | Outpatient (CLI) | payer MEDICARE, OTHER, SELFPAY ==
--- NOTE | 2022-06-15 13:46 | BI_ITS ---
MAMMOGRAPHY - BILATERAL SCREENING REASON FOR EXAM: Female, 72 years old. Routine annual screening examination. PERTINENT HISTORY: Non-contributory. TECHNIQUE: Digital bilateral breast poonam (3D mammographic acquisition) in the CC and MLO projections. 2-D mediolateral oblique (MLO) and craniocaudad (CC) views of both breasts were obtained. CAD: Full Field Digital Mammography with Computer Added Detection was performed. COMPARISON: Comparison is made with prior study dated 06/14/2021 and 06/04/2020. FINDINGS: Breast Composition: The breasts are heterogeneously dense, which may obscure small masses. There are no dominant masses or suspicious calcifications. No other significant abnormalities are identified. There has been no significant change since the prior study. BI/SCRN MAMM (CAD)W/POONAM BILAT IMPRESSION: Stable bilateral screening mammogram. Yearly follow-up mammogram recommended. (A) ASSESSMENT CATEGORY: BIRADS Category 1: Negative. A letter regarding these results will be sent to the patient by the facility within 30 days. Approximately 10% of breast cancers are not detected by mammography. A normal mammogram should not delay biopsy of a clinically suspicious abnormality. [id number] Electronically Signed: David Zheng MD at 14:34 EST ,
== END | disposition home or self-care (01) ==
LOC: OPBI 13:44
PROVIDERS: PCP Family Medicine Geriatric Medicine; Referring Provider Family Medicine Geriatric Medicine; Visit Provider Family Medicine Geriatric Medicine
DX: Z12.31 Encounter for screening mammogram for malignant neoplasm of breast (principal)
CPT/HCPCS: 77063; 77067

== ENCOUNTER → 2022-12-20 | Outpatient (CLI) | payer MEDICARE, OTHER, SELFPAY ==
[2022-12-20 11:42] LABS: Absolute Lymphocyte Count 1.27 X10^3/uL (0.83-4.51); Absolute Neutrophil Count 5.3 X10^3/uL (2.0-7.7); Basophil# 0.03 X10^3/uL; Basophil% 0.4 % (0-1); Eosinophil# 0.09 X10^3/uL; Eosinophils% 1.3 % (0-5); Hematocrit 44.3 % (37-47); Hemoglobin 14.9 g/dL (12.0-15.0); Lymphocyte # 1.27 X10^3/ul (0.83-4.51); Lymphocyte % 17.6 % (19-41); Mean Corp Hgb Conc 33.6 g/dL (32-36); Mean Corpuscular Hgb 29.6 pg (27.0-32.0); Mean Corpuscular Volume 88.1 fL (81-99); Mean Platelet Vol. 9.3 fl (6.2-12.0); Monocyte# 0.45 X10^3/uL; Monocyte% 6.3 % (0-10); NRBC Flagged by Analyzer 0 % (0-5); Neutrophil # 5.33 X10^3/uL (2.7-7.7); Platelet Count 220 K/mm3 (150-450); RBC Distribution Width CV 13.4 % (11.6-14.6); RBC Distribution Width SD 43.3 fl (35.1-43.9); Red Blood Count 5.03 M/mm3 (4.2-5.4); White Blood Count 7.2 K/mm3 (4.4-11.0)
[2022-12-20 12:13] LABS: Vitamin D,25 Hydroxy 59.4 ng/mL
[2022-12-20 12:25] LABS: ALB/GLOB Ratio 1.1 RATIO (0.9-2.4); AST(SGOT) 24 U/L (15-37); Alanine Aminotransfer ALT/SGPT 25 U/L (13-56); Albumin, Serum 3.7 g/dL (3.2-5.0); Alkaline Phosphatase 89 U/L (45-117); Anion Gap 2 (5-15); BUN 16 mg/dL (7-18); BUN/Creat Ratio 17.4 RATIO (10-20); Calcium,Total 8.9 mg/dL (8.5-10.1); Chloride 102 mmol/L (98-107); Creatinine, Serum 0.92 mg/dL (0.55-1.02); EST Glomerular Filtration Rate 64 mL/min (>60); Est Glom Filt Rate - Afr Amer 77 mL/min (>60); Globulin 3.5 g/dL (2.2-4.2); Glucose 104 mg/dL (74-106); Potassium 4.6 mmol/L (3.5-5.1); Protein, Total 7.2 g/dL (6.4-8.2); Sodium Level 134 mmol/L (136-145); Thyroid Stim Hormone (TSH) 1.46 uIU/mL (0.358-3.74)
== END | disposition home or self-care (01) ==
LOC: LAB 11:23
PROVIDERS: PCP Family Medicine Geriatric Medicine; Referring Provider Family Medicine Geriatric Medicine; Visit Provider Family Medicine Geriatric Medicine
DX: I10 Essential (primary) hypertension (principal); E55.9 Vitamin D deficiency, unspecified
CPT/HCPCS: 36415; 80053; 82306; 84443; 85025

== ENCOUNTER → 2023-06-28 | Outpatient (CLI) | payer MEDICARE, OTHER, SELFPAY ==
--- OUTSIDE RECORDS SUMMARY | 2023-06-28 11:45 | XMS RPT_ITS | CCD ---
Author Name Unknown Address [facility] [address] [place] [address] Organization [facility] Care Team Providers Care Mat Roller Name Role Phone TARAN MONROE DR Admitting Unavailable TARAN MONROE DR Attending Unavailable TARAN MONROE DR Primary Care Unavailable BLUE WHALEN MD Consulting Unavailable PROVIDER, UNKNOWN Consulting Unavailable PROVIDER, UNKNOWN Consulting Unavailable TARAN MONROE DR Admitting Unavailable TARAN MONROE DR Attending Unavailable TARAN MONROE DR Primary Care Unavailable BLUE WHALEN MD Consulting Unavailable PROVIDER, UNKNOWN Consulting Unavailable PROVIDER, UNKNOWN Consulting Unavailable TARAN MONROE DR Admitting Unavailable TARAN MONROE DR Attending Unavailable TARAN MONROE DR Primary Care Unavailable BLUE WHALEN MD Consulting Unavailable PROVIDER, UNKNOWN Consulting Unavailable PROVIDER, UNKNOWN Consulting Unavailable TARAN MONROE DR Admitting Unavailable TARAN MONROE DR Attending Unavailable TARAN MONREO DR Primary Care Unavailable BLUE WHALEN MD Consulting Unavailable VLADIMIR ROBLERO MD Referring Unavailable PROVIDER, UNKNOWN Consulting Unavailable PROVIDER, UNKNOWN Consulting Unavailable Allergies Allergy Classification Reported Allergen(s) Allergy Type Date of Onset Reaction(s) Facility (1 source) Penicillin Drug Allergy [facility] Repository Results Test Name Value Interpretation Reference Range Facil ity Encounters Encounter Date Encounter Type Care Provider Facility Start: 05-26-2019 End: 05-27-2019 Patient encounter procedure TARAN MONROE [facility] Start: 05-09-2019 Encounter for other preprocedural examination TARAN [facility] Start: 05-09-2019 End: 05-09-2019 Patient encounter procedure TARAN MONROE Ol[facility] Start: 03-24-2019 End: 03-24-2019 Patient encounter procedure TARAN MONROE Ol[facility] Start: 02-11-2019 Encounter for prepro cedural cardiovascular examination TARAN [facility] Start: 02-11-2019 End: 02-11-2019 Patient encounter procedure TARAN MONROE [facility] Encounter for other preprocedural examination TARAN MONROE [facility] Encounter for prepro cedural cardiovascular examination TARAN [facility] Payers Date Payer Category Payer Unknown [id number] 1950 Unknown [id number] 1950 Unknown [id number] 1950 Unknown [id number] [employer] others[place] [id number] [employer] ( [employer] others) [id number] Medicare [id number] Summary Purpose Family History No Family History Records FoundNo Family History Records Found Advance Directives No Advanced Directives Records FoundNo Advanced Directives Records Found Hospital Course Note [facility] DISCHARGE SUMMARY NAME ACCOUNT SEX AGE ADMIT DISCHARGE PT MED. RECORD# NUMBER DATE DATE TYPE DEJUAN CUADRA [id number] F 69 05/26/19 2 [id number] ROOM: 311 DATE OF : 1950 DICTATING PHYSICIAN: Taran Monroe PROGRESS NOTE/DISCHARGE SUMMARY FINAL DIAGNOSES: 1. Right knee replacement for arthritis. 2. History of thyroid disease and hypertension. PROCEDURES: Right knee replacement. HOSPITAL COURSE: The patient is postoperative day #1 from right total knee replacement. She is feeling well. She denies chest pain. She denies shortness of breath. No productive cough. She is hoping for discharge to home later today. She plans on outpatient therapy. PHYSICAL EXAMINATION: She has been afebrile. Temperature current is 98.1, and pulse oximetry is 95% on room air. Nursing 24-hour summary sheet was reviewed. The case was discussed with the hospitalist service. The patient's right knee bandage is on, clean and dry. Mepilex dressing has no blood on it. Her knee motion is 0- 50 degrees (more content not included)... Additional Source Comments INFORMATION SOURCE (unrecogn ized section and content) DATE CREATED AUTHOR AUTHOR'S SKYLER HENNESSY 05/30/2019 [facility] ([place]) FOR RECORDS PERTAINING TO PATIENTS WHO ARE OR HAVE BEEN ENROLLED IN A CHEMICAL DEPENDENCY/SUBSTANCEABUSE PROGRAM, SOME INFORMATION MAY BE OMITTED. This clinical summary was aggregated from multiple sources. Caution should be exercised in using it in the provision of clinical care. This summary normalizes information from multiple sources, and as a consequence, information in this document may materially change the coding, format and clinical context of patient data. In addition, data may be omitted in some cases. CLINICAL DECISIONS SHOULD BE BASED ON THE PRIMARY CLINICAL RECORDS. [facility] [employer] [facility]. provides no warranty or guarantee of the accuracy or completeness of information in this document.
[2023-06-28 11:55] LABS: Absolute Lymphocyte Count 1.14 X10^3/uL (0.83-4.51); Absolute Neutrophil Count 4.2 X10^3/uL (2.0-7.7); Basophil# 0.02 X10^3/uL; Basophil% 0.3 % (0-1); Eosinophil# 0.11 X10^3/uL; Eosinophils% 1.8 % (0-5); Hematocrit 42.9 % (37-47); Hemoglobin 14.5 g/dL (12.0-15.0); Lymphocyte # 1.14 X10^3/ul (0.83-4.51); Lymphocyte % 18.9 % (19-41); Mean Corp Hgb Conc 33.8 g/dL (32-36); Mean Corpuscular Hgb 29.4 pg (27.0-32.0); Mean Platelet Vol. 9.7 fl (6.2-12.0); Monocyte% 8.3 % (0-10); NRBC Flagged by Analyzer 0 % (0-5); Neutrophil # 4.24 X10^3/uL (2.7-7.7); Neutrophil % 70.5 % (47-70); Platelet Count 201 K/mm3 (150-450); RBC Distribution Width SD 40.8 fl (35.1-43.9); Red Blood Count 4.93 M/mm3 (4.2-5.4)
[2023-06-28 12:21] LABS: ALB/GLOB Ratio 1.1 RATIO (0.9-2.4); AST(SGOT) 20 U/L (15-37); Alanine Aminotransfer ALT/SGPT 24 U/L (13-56); Albumin, Serum 3.5 g/dL (3.2-5.0); Alkaline Phosphatase 87 U/L (45-117); Anion Gap 7 (5-15); BUN 16 mg/dL (7-18); BUN/Creat Ratio 16.7 RATIO (10-20); Chloride 101 mmol/L (98-107); Creatinine, Serum 0.96 mg/dL (0.55-1.02); EST Glomerular Filtration Rate 60 mL/min (>60); Est Glom Filt Rate - Afr Amer 73 mL/min (>60); Globulin 3.3 g/dL (2.2-4.2); Glucose 98 mg/dL (74-106); Potassium 4.5 mmol/L (3.5-5.1); Protein, Total 6.8 g/dL (6.4-8.2); Sodium Level 136 mmol/L (136-145)
== END | disposition home or self-care (01) ==
LOC: POLAB3 10:59
PROVIDERS: PCP Family Medicine Geriatric Medicine; Visit Provider Family Medicine Geriatric Medicine
DX: I10 Essential (primary) hypertension (principal); E55.9 Vitamin D deficiency, unspecified
CPT/HCPCS: 36415; 80053; 82306; 84443; 85025

== ENCOUNTER → 2023-07-03 | Outpatient (CLI) | payer MEDICARE, OTHER, SELFPAY ==
--- NOTE | 2023-07-03 13:42 | BI_ITS ---
MAMMOGRAPHY - BILATERAL SCREENING REASON FOR EXAM: Female, 73 years old. Routine annual screening examination. PERTINENT HISTORY: Non-contributory. TECHNIQUE: Digital bilateral breast poonam (3D mammographic acquisition) in the CC and MLO projections. 2-D mediolateral oblique (MLO) and craniocaudad (CC) views of both breasts were obtained. CAD: Full Field Digital Mammography with Computer Added Detection was performed. COMPARISON: Comparison is made with prior study dated June 15, 2022 and June 14, 2021. FINDINGS: Breast Composition: The breasts are heterogeneously dense, which may obscure small masses. There are no dominant masses or suspicious calcifications. No other significant abnormalities are identified. There has been no significant change since the prior study. BI/SCRN MAMM (CAD)W/POONAM BILAT IMPRESSION: Stable bilateral screening mammogram. Yearly follow-up mammogram recommended. (A) ASSESSMENT CATEGORY: BIRADS Category 1: Negative. A letter regarding these results will be sent to the patient by the facility within 30 days. Approximately 10% of breast cancers are not detected by mammography. A normal mammogram should not delay biopsy of a clinically suspicious abnormality. [id number] Electronically Signed: David Zheng MD at 8:51 EST ,
--- OUTSIDE RECORDS SUMMARY | 2023-07-03 15:25 | XMS RPT_ITS | CCD ---
Author Name Unknown Address [facility] [address] [place] [address] Organization [facility] Care Team Providers Care Crystal Mounter Name Role Phone TARAN MONROE DR Admitting [...] Reaction(s) Facility (1 source) Penicillin Drug Allergy [facility] Repository Results Test Name Value Interpretation Reference Range Facil ity Encounters Encounter Date Encounter Type Care Provider Facility Start: 05-26-2019 End: 05-27-2019 Patient encounter procedure TARAN MONROE [facility] Start: 05-09-2019 Encounter for other preprocedural examination TARAN [facility] Start: 05-09-2019 End: 05-09-2019 Patient encounter procedure TARAN MONROE Ol[facility] Start: 03-24-2019 End: 03-24-2019 Patient encounter procedure TARAN MONROE Ol[facility] Start: 02-11-2019 Encounter for prepro cedural cardiovascular examination TARNA [facility] Start: 02-11-2019 End: 02-11-2019 Patient encounter procedure TARAN MONROE [facility] Encounter for other preprocedural examination TARAN MONROE [facility] Encounter for prepro cedural cardiovascular examination TARAN [facility] Payers Date Payer Category Payer Unknown [id number] 1950 Unknown [id number] 1950 Unknown [id number] 1950 Unknown [id number] [employer] ( [employer] others) [id number] [employer] ( and others) [id number] Medicare [id number] Summary Purpose Family History No Family History Records FoundNo Family History Records Found Advance Directives No Advanced Directives Records FoundNo Advanced Directives Records Found Hospital Course Note [facility] DISCHARGE SUMMARY NAME ACCOUNT SEX AGE ADMIT DISCHARGE PT MED. RECORD# NUMBER DATE DATE TYPE DEJUAN CUADRA [id number] F 69 05/26/19 2 [id number] ROOM: 311 DATE OF : 1950 DICTATING [...] DATE CREATED AUTHOR AUTHOR'S SKYLER HENNESSY 05/30/2019 [facility] ([place]) FOR RECORDS PERTAINING TO PATIENTS WHO ARE [...] BE BASED ON THE PRIMARY CLINICAL RECORDS. [facility]. provides no warranty or guarantee of the accuracy or completeness of information in this document.
== END | disposition home or self-care (01) ==
LOC: OPBI 13:41
PROVIDERS: PCP Family Medicine Geriatric Medicine; Referring Provider Family Medicine Geriatric Medicine; Visit Provider Family Medicine Geriatric Medicine
DX: Z12.31 Encounter for screening mammogram for malignant neoplasm of breast (principal)
CPT/HCPCS: 77063; 77067

== ENCOUNTER → 2023-10-09 | Outpatient (CLI) | payer MEDICARE, OTHER, SELFPAY | END | disposition home or self-care (01) | LOC: PSN 10:02 | PROVIDERS: PCP Family Medicine Geriatric Medicine; Referring Provider Family Medicine Geriatric Medicine; Visit Provider Family Medicine Geriatric Medicine | DX: R68.83 Chills (without fever) (principal) | CPT/HCPCS: 87631 ==

== ENCOUNTER → 2024-01-01 | Outpatient (CLI) | payer MEDICARE, OTHER, SELFPAY ==
[2024-01-01 12:49] LABS: Vitamin D,25 Hydroxy 54.7 ng/mL
[2024-01-01 12:53] LABS: Absolute Lymphocyte Count 1.18 X10^3/uL (0.83-4.51); Basophil# 0.04 X10^3/uL; Basophil% 0.7 % (0-1); Eosinophil# 0.09 X10^3/uL; Eosinophils% 1.5 % (0-5); Hemoglobin 14.3 g/dL (12.0-15.0); Lymphocyte # 1.18 X10^3/ul (0.83-4.51); Lymphocyte % 20.3 % (19-41); Mean Corp Hgb Conc 33.3 g/dL (32-36); Mean Corpuscular Volume 87.2 fL (81-99); Mean Platelet Vol. 10.3 fl (6.2-12.0); Monocyte# 0.48 X10^3/uL; Monocyte% 8.2 % (0-10); NRBC Flagged by Analyzer 0 % (0-5); Neutrophil # 4.01 X10^3/uL (2.7-7.7); Platelet Count 224 K/mm3 (150-450); RBC Distribution Width CV 14.1 % (11.6-14.6); Red Blood Count 4.93 M/mm3 (4.2-5.4); White Blood Count 5.8 K/mm3 (4.4-11.0)
[2024-01-01 13:26] LABS: ALB/GLOB Ratio 1.1 RATIO (0.9-2.4); AST(SGOT) 23 U/L (15-37); Alanine Aminotransfer ALT/SGPT 25 U/L (13-56); Albumin, Serum 3.6 g/dL (3.2-5.0); Alkaline Phosphatase 78 U/L (45-117); Anion Gap 6 (5-15); BUN 19 mg/dL (7-18); BUN/Creat Ratio 21.3 RATIO (10-20); Calcium,Total 9.4 mg/dL (8.5-10.1); Chloride 102 mmol/L (98-107); Creatinine, Serum 0.89 mg/dL (0.55-1.02); EST Glomerular Filtration Rate 65 mL/min (>60); Est Glom Filt Rate - Afr Amer 79 mL/min (>60); Globulin 3.4 g/dL (2.2-4.2); Glucose 96 mg/dL (74-106); Potassium 5.3 mmol/L (3.5-5.1); Sodium Level 135 mmol/L (136-145); Thyroid Stim Hormone (TSH) 1.32 uIU/mL (0.358-3.74)
== END | disposition home or self-care (01) ==
LOC: POLAB3 10:49
PROVIDERS: PCP Family Medicine Geriatric Medicine; Visit Provider Family Medicine Geriatric Medicine
DX: I10 Essential (primary) hypertension (principal); E55.9 Vitamin D deficiency, unspecified
CPT/HCPCS: 36415; 80053; 82306; 84443; 85025

== ENCOUNTER → 2024-01-03 | Outpatient (CLI) | payer MEDICARE, OTHER, SELFPAY ==
[2024-01-03 12:36] LABS: Anion Gap 6 (5-15); BUN 15 mg/dL (7-18); BUN/Creat Ratio 17.1 RATIO (10-20); Calcium,Total 9.4 mg/dL (8.5-10.1); Chloride 102 mmol/L (98-107); Creatinine, Serum 0.88 mg/dL (0.55-1.02); EST Glomerular Filtration Rate 67 mL/min (>60); Est Glom Filt Rate - Afr Amer 81 mL/min (>60); Glucose 102 mg/dL (74-106); Potassium 4.2 mmol/L (3.5-5.1); Sodium Level 138 mmol/L (136-145)
== END | disposition home or self-care (01) ==
LOC: POLAB3 10:52
PROVIDERS: PCP Family Medicine Geriatric Medicine; Visit Provider Family Medicine Geriatric Medicine
DX: I10 Essential (primary) hypertension (principal)
CPT/HCPCS: 36415; 80048

== ENCOUNTER → 2024-07-02 | Outpatient (CLI) | payer MEDICARE, OTHER, SELFPAY ==
[2024-07-02 12:47] LABS: Absolute Neutrophil Count 4.9 X10^3/uL (2.0-7.7); Basophil# 0.03 X10^3/uL; Basophil% 0.4 % (0-1); Eosinophil# 0.11 X10^3/uL; Eosinophils% 1.6 % (0-5); Hematocrit 43.2 % (37-47); Hemoglobin 14.5 g/dL (12.0-15.0); Lymphocyte % 20.5 % (19-41); Mean Corp Hgb Conc 33.6 g/dL (32-36); Mean Corpuscular Hgb 29.2 pg (27.0-32.0); Mean Corpuscular Volume 86.9 fL (81-99); Mean Platelet Vol. 9.7 fl (6.2-12.0); Monocyte# 0.42 X10^3/uL; Monocyte% 6.1 % (0-10); NRBC Flagged by Analyzer 0 % (0-5); Neutrophil # 4.85 X10^3/uL (2.7-7.7); Neutrophil % 71.1 % (47-70); Platelet Count 227 K/mm3 (150-450); RBC Distribution Width CV 12.8 % (11.6-14.6); RBC Distribution Width SD 40.4 fl (35.1-43.9); Red Blood Count 4.97 M/mm3 (4.2-5.4); White Blood Count 6.8 K/mm3 (4.4-11.0)
[2024-07-02 13:16] LABS: Vitamin D,25 Hydroxy 60.2 ng/mL
[2024-07-02 13:25] LABS: ALB/GLOB Ratio 1.1 RATIO (0.9-2.4); AST(SGOT) 19 U/L (15-37); Alanine Aminotransfer ALT/SGPT 24 U/L (13-56); Albumin, Serum 3.6 g/dL (3.2-5.0); Alkaline Phosphatase 83 U/L (45-117); Anion Gap 2 (5-15); BUN 18 mg/dL (7-18); BUN/Creat Ratio 21.5 RATIO (10-20); Calcium,Total 9.3 mg/dL (8.5-10.1); Chloride 101 mmol/L (98-107); Creatinine, Serum 0.84 mg/dL (0.55-1.02); EST Glomerular Filtration Rate 70 mL/min (>60); Est Glom Filt Rate - Afr Amer 85 mL/min (>60); Globulin 3.2 g/dL (2.2-4.2); Glucose 106 mg/dL (74-106); Potassium 4.7 mmol/L (3.5-5.1); Protein, Total 6.8 g/dL (6.4-8.2); Sodium Level 132 mmol/L (136-145)
== END | disposition home or self-care (01) ==
LOC: LAB 11:47
PROVIDERS: PCP Family Medicine Geriatric Medicine; Referring Provider Family Medicine Geriatric Medicine; Visit Provider Family Medicine Geriatric Medicine
DX: I10 Essential (primary) hypertension (principal); E55.9 Vitamin D deficiency, unspecified
CPT/HCPCS: 36415; 80053; 82306; 84443; 85025

== ENCOUNTER → 2024-07-04 | Outpatient (CLI) | payer MEDICARE, OTHER, SELFPAY ==
--- NOTE | 2024-07-04 12:08 | BI_ITS ---
MAMMOGRAPHY - BILATERAL SCREENING REASON FOR EXAM: Female, 74 years old. Routine annual screening examination. PERTINENT HISTORY: Non-contributory. TECHNIQUE: Digital bilateral breast poonam (3D mammographic acquisition) in the CC and MLO projections. 2-D mediolateral oblique (MLO) and craniocaudad (CC) views of both breasts were obtained. CAD: Full Field Digital Mammography with Computer Added Detection was performed. COMPARISON: Comparison is made with prior study dated July 03, 2023 and June 15, 2022. FINDINGS: Breast Composition: The breasts are heterogeneously dense, which may obscure small masses. There are no dominant masses or suspicious calcifications. No other significant abnormalities are identified. There has been no significant change since the prior study. BI/SCRN MAMM (CAD)W/POONAM BILAT IMPRESSION: Stable bilateral screening mammogram. Yearly follow-up mammogram recommended. (A) ASSESSMENT CATEGORY: BIRADS Category 1: Negative. A letter regarding these results will be sent to the patient by the facility within 30 days. Approximately 10% of breast cancers are not detected by mammography. A normal mammogram should not delay biopsy of a clinically suspicious abnormality. [id number] Electronically Signed: David Zheng MD at 12:55 EST ,
== END | disposition home or self-care (01) ==
LOC: OPBI 12:06
PROVIDERS: PCP Family Medicine Geriatric Medicine; Referring Provider Family Medicine Geriatric Medicine; Visit Provider Family Medicine Geriatric Medicine
DX: Z12.31 Encounter for screening mammogram for malignant neoplasm of breast (principal)

== ENCOUNTER → 2025-01-01 | Outpatient (CLI) | payer MEDICARE, OTHER, SELFPAY ==
[2025-01-01 11:06] LABS: Hematocrit 43.1 % (37-47); Hemoglobin 14.8 g/dL (12.0-15.0); Immature Granulocytes Count 0.030 X10^3/uL (0.0-0.0); Mean Corp Hgb Conc 34.3 g/dL (32-36); Mean Corpuscular Volume 87.2 fL (81-99); Mean Platelet Vol. 9.8 fl (6.2-12.0); NRBC Flagged by Analyzer 0 % (0-5); Platelet Count 230 K/mm3 (150-450); RBC Distribution Width CV 13.1 % (11.6-14.6); RBC Distribution Width SD 42.1 fl (35.1-43.9); Red Blood Count 4.94 M/mm3 (4.2-5.4); White Blood Count 6.4 K/mm3 (4.4-11.0)
[2025-01-01 13:17] LABS: AST(SGOT) 23 U/L (<=31); Alanine Aminotransfer ALT/SGPT 16 U/L (<=34); Albumin, Serum 4.3 g/dL (3.4-4.8); Alkaline Phosphatase 83 U/L (35-104); Anion Gap 11 (5-15); BUN 16 mg/dL (4-19); BUN/Creat Ratio 17.2 RATIO (10-20); Calcium,Total 9.6 mg/dL (7.6-11.0); Carbon Dioxide 25.7 mmol/L (21.0-32.0); Chloride 100 mmol/L (98-108); Globulin 2.5 g/dL (2.2-4.2); Glucose 107 mg/dL (70-99); Potassium 5.0 mmol/L (3.3-5.1); Vitamin D,25 Hydroxy 70.9 ng/mL (30-100)
--- OUTSIDE RECORDS SUMMARY | 2025-01-01 20:20 | XMS RPT_ITS | CCD ---
Author Organization [facility] Care Team Providers Care Outreach Rep Name Role Phone TARAN MONROE DR Admitting [...] Unavailable BLUE WHALEN MD Consulting Unavailable VLADIMIR CRUZ MD Referring Unavailable PROVIDER, UNKNOWN Consulting Unavailable PROVIDER, UNKNOWN Consulting Unavailable Daniel, Blue Chi Attending Unavailable Daniel, Blue Chi Primary Care Unavailable Daniel, Blue Chi Referring Unavailable Daniel, Blue Chi Attending Unavailable Daniel, Blue Chi Primary Care Unavailable Daniel, Blue Chi Referring Unavailable Daniel, Blue Chi Attending Unavailable Daniel, Blue Chi Primary Care Unavailable Daniel, Blue Chi Referring Unavailable Daniel, Blue Chi Attending Unavailable Daniel, Blue Chi Primary Care Unavailable Daniel, Blue Chi Attending Unavailable Daniel, Blue Chi Primary Care Unavailable Allergies Allergy Classification Reported Allergen(s) Allergy Type Date of Onset Reaction(s) Facility (1 source) Penicillin Drug Allergy [facility] Repository (6 sources) Penicillins Propensity to adverse reactions [address] [place] [address] (1 source) Penicillins Drug allergy (disorder) [address] [facility] Repository Medications Current Medications Medication Drug Class(es) Dates Sig (Normalized) Sig (Original) acetaminophen 325 mg / oxyCODONE hydrochloride 5 mg oral tablet (6 sources) Opioid Agonist Start: 04-21-2015 take 2 tablets by mouth every four hours as needed Oxycodone-Acetami nophen Active 2 TABLET PO EVERY 4 HOURS NEEDED April 21, 2015 12:00am aspirin 81 mg delayed release oral tablet (12 sources) Platelet Aggregation Inhibitor, Nonsteroidal Anti-inflammatory Drug Start: 03-31-2015 End: 04-21-2015 Aspirin (Adult Low Dose Aspirin) 81 MG tablet,delayed release (DR/EC) Active 81 MG PO DAILY 0 April 21, 2015 12:52pm calcium carbonate 1500 mg / cholecalciferol 800 unt oral tablet (6 sources) Vitamin D Start: 03-31-2015 Calcium Carbonate-Vitamin D3 Active 1 EACH PO DAILY March 31, 2015 12:00am docusate sodium 50 mg / sennosides, retirement 8.6 mg oral tablet (6 sources) Start: 04-21-2015 Sennosides-Docusa te Sodium (Stool Softener-Stimulan t Laxat) 1 TABLET tablet Active 2 TABLET PO TWICE A DAY April 21, 2015 12:00am hydroCHLOROthiazide 25 mg / losartan potassium 100 mg oral tablet (6 sources) Thiazide Diuretic, Angiotensin 2 Receptor Tere Start: 03-31-2015 take 1 tablet by mouth once daily Losartan-Hydrochl orothiazide Active 1 TABLET PO DAILY March 31, 2015 12:00am levothyroxine (6 sources) l-Thyroxine Start: 03-31-2015 take 75 ug by mouth once daily Levothyroxine Active 75 MCG PO DAILY March 31, 2015 12:00am Start: 03-31-2015 take 75 ug by mouth once daily Levothyroxine Active 75 MCG PO DAILY March 30, 2015 11:00pm losartan potassium 50 mg oral tablet (6 sources) Angiotensin 2 Receptor Tere Start: 04-21-2015 take 100 mg by mouth once daily Losartan Active 100 MG PO DAILY 0 April 21, 2015 12:00am abuse-deterrent 12 hr oxyCODONE hydrochloride 10 mg extended release oral tablet (12 sources) Opioid Agonist Start: 04-21-2015 End: 04-21-2015 take 1 tablet by mouth twice daily Oxycodone (Oxycontin) 10 MG tablet Active 10 MG PO TWICE A DAY April 21, 2015 12:56pm pravastatin sodium 20 mg oral tablet (12 sources) HMG-CoA Reductase Inhibitor Start: 04-21-2015 take 10 mg by mouth at bedtime Pravastatin Active 10 MG PO AT BEDTIME 0 April 21, 2015 12:00am Start: 03-31-2015 take 10 mg by mouth once daily Pravastatin Active 10 MG PO DAILY March 31, 2015 12:00am rivaroxaban 10 mg oral tablet (6 sources) Factor Xa Inhibitor Start: 04-21-2015 take 1 tablet by mouth once daily Rivaroxaban (Xarelto) 10 MG tablet Active 10 MG PO DAILY@0600 April 21, 2015 12:00am Completed/Discontinued Medications Medication Drug Class(es) Dates Sig (Normalized) Sig (Original) Glucosam-Chondroit- C-Manganese (Cosamin Ds Capsule) 1 EACH capsule (6 sources) Start: 03-31-2015 End: 04-21-2015 Tbzekber-Ogqziagxi-A -Manganese (Cosamin Ds Capsule) 1 EACH capsule Discontinued 1 EACH PO DAILY March 31, 2015 12:00am April 21, 2015 12:48pm Start: 03-31-2015 End: 04-21-2015 Cazrknyo-Zankzhsem-A-Mangane se (Cosamin Ds Capsule) 1 EACH capsule Discontinued 1 EACH PO DAILY March 30, 2015 11:00pm April 21, 2015 11:48am ibuprofen 200 mg oral tablet (6 sources) Nonsteroidal Anti-inflammatory Drug Start: 03-31-2015 End: 04-21-2015 take 200 mg by mouth every six hours Ibuprofen Discontinued 200 MG PO EVERY 6 HOURS March 31, 2015 12:00am April 21, 2015 12:48pm Multivitamin (Daily Multiple Vitamin) 1 EACH tablet (6 sources) Start: 03-31-2015 End: 04-21-2015 take 1 tablet by mouth once daily Multivitamin (Daily Multiple Vitamin) 1 EACH tablet Discontinued 1 EACH PO DAILY March 31, 2015 12:00am April 21, 2015 12:48pm Start: 03-31-2015 End: 04-21-2015 take 1 tablet by mouth once daily Multivitamin (Daily Multiple Vitamin) 1 EACH tablet Discontinued 1 EACH PO DAILY March 30, 2015 11:00pm April 21, 2015 11:48am Problems Active Problems Problem Classification Problem Date Documented Da te Episodic/Chronic Disorders of lipid metabolism (6 sources) Hyperlipidemia; Translations: [Hyperlipidemia, unspecified] 04-19-2015 Chronic Essential hypertension (7 sources) Hypertensive disorder; Translations: [Essential (primary) hypertension] Onset: 07-24-2024 04-19-2015 Chronic Osteoarthritis (6 sources) Osteoarthritis; Translations: [Unspecified osteoarthritis, unspecified site] 04-19-2015 Chronic Other screening for suspected conditions (not mental disorders or infectious disease) (1 source) Encounter for screening mammogram for malignant neoplasm of breast; Translations: [Encounter for screening mammogram for malignant neoplasm of breast] Onset: 07-30-2024 Episodic Thyroid disorders (6 sources) Hypothyroidism; Translations: [Hypothyroidism, unspecified] 04-19-2015 Chronic Past or Other Problems Problem Classification Problem Date Documented Da te Episodic/Chronic Residual codes; unclassified (1 source) Chills (without fever); Translations: [Chills (without fever)] Onset: 10-15-2023 Episodic Results Test Name Value Interpretation Reference Range Facility SCRN MAMM (CAD)W/POONAM BILATo n 07-04-2024 SCRN MAMM (CAD)W/POONAM BILAT [facility] [address] [place] [address] [id number] SCRN MAMM (CAD)W/POONAM BILAT MR#: [id number] Acct: [id number] Name: DEJUAN CUADRA Rep #: [id number] : 1950 F 74 From: David dimas MD PCP: Dr. Blue Whalen MD Status: [facility] Study: SCRN MAMM (CAD)W/POONAM BILAT Date of Exam: 06/25 Exam# [id number] Ordering Dr: Blue Whalen MD [id number] MAMMOGRAPHY - BILATERAL SCREENING REASON FOR EXAM: Female, 74 years old. Routine annual screening examination. PERTINENT HISTORY: Non-contributory. TECHNIQUE: Digital bilateral breast poonam (3D mammographic acquisition) in the CC and MLO projections. 2-D mediolateral oblique (MLO) and craniocaudad (CC) views of both breasts were obtained. CAD: Full Field Digital Mammography with Computer Added Detection was performed. COMPARISON: Comparison is made with prior study dated July 03, 2023 and June 15, 2022. FINDINGS: Breast Composition: The breasts are heterogeneously dense, which may obscure small masses. There are no dominant masses or suspicious calcifications. No other significant abnormalities are identified. There has been no significant change since the prior study. BI/SCRN MAMM (CAD)W/POONAM BILAT IMPRESSION: Stable bilateral screening mammogram. Yearly follow-up mammogram recommended. (A) ASSESSMENT CATEGORY: BIRADS Category 1: Negative. A letter regarding these results will be sent to the patient by the facility within 30 days. Approximately 10% of breast cancers are not detected by mammography. A normal mammogram should not delay biopsy of a clinically suspicious abnormality. [id number] Electronically Signed: David Zheng MD at 12:55 EST Reading Location ID and State: [address] [place] [address] , Service support , CC: Dr. Blue Whalen MD Cutter Finisher: Signed Normal [facility] CBC W/Diff, Automatedon -0 Absolute Lymph 1.40 X10 3/uL Normal 0.83-4.[address] [facility] Comment on above: Performed By: #### L 500.4050, L506.1000, L100.0100, L501.9520 #### [facility] [address] [place], [address] Absolute Neut 4.9 X10 3/uL Normal 2.0-7.[address] [facility] Comment on above: Performed By: #### L 500.4050, L506.1000, L100.0100, L501.9520 #### [facility] [address] [place], [address] Basophils/100 WBC (Bld) 0.4 % Normal 0-1 [facility] Comment on above: Performed By: #### L 500.4050, L506.1000, L100.0100, L501.9520 #### [facility] [address] [place], [address] Eosinophils/100 WBC (Bld) 1.6 % Normal 0-[address] [facility] Comment on above: Performed By: #### L 500.4050, L506.1000, L100.0100, L501.9520 #### [facility] [address] [place], [address] Erythrocyte distribution width (RBC) [Ratio] 12.8 % Normal 11.6-14.[address] [facility] Comment on above: Performed By: #### L 500.4050, L506.1000, L100.0100, L501.9520 #### [facility] [address] [place], [address] Hematocrit (Bld) [Volume fraction] 43.2 % Normal 37-[address] [facility] Comment on above: Performed By: #### L 500.4050, L506.1000, L100.0100, L501.9520 #### [facility] [address] [place], [address] Hemoglobin (Bld) [Mass/Vol] 14.5 g/dL Normal 12.0-15.[address] [facility] Comment on above: Performed By: #### L 500.4050, L506.1000, L100.0100, L501.9520 #### [facility] [address] [place], [address] IG% 0.300 Normal 0.0-0.[address] [facility] Comment on above: Result Comment: IG% - Immature Granulocytes (promyelocytes, myelocytes and metamyelocytes) > 1% indicates that a LEFT SHIFT is Present. Performed By: #### L 500.4050, L506.1000, L100.0100, L501.9520 #### [facility] [address] [place], [address] Lymphocytes/100 WBC (Bld) 20.5 % Normal 19-[address] [facility] Comment on above: Performed By: #### L 500.4050, L506.1000, L100.0100, L501.9520 #### [facility] [address] [place], [address] MCH (RBC) [Entitic mass] 29.2 pg Normal 27.0-32.[address] [facility] Comment on above: Performed By: #### L 500.4050, L506.1000, L100.0100, L501.9520 #### [facility] [address] [place], [address] MCHC (RBC) [Mass/Vol] 33.6 g/dL Normal 32-36 [facility] Comment on above: Performed By: #### L 500.4050, L506.1000, L100.0100, L501.9520 #### [facility] [address] [place], [address] MCV (RBC) [Entitic vol] 86.9 fL Normal 81-99 [facility] Comment on above: Performed By: #### L 500.4050, L506.1000, L100.0100, L501.9520 #### [facility] [address] [place], [address] Monocytes/100 WBC (Bld) 6.1 % Normal 0-10 [facility] Comment on above: Performed By: #### L 500.4050, L506.1000, L100.0100, L501.9520 #### [facility] [address] [place], [address] Neutrophils/100 WBC (Bld) 71.1 % High 47-[address] [facility] Comment on above: Performed By: #### L 500.4050, L506.1000, L100.0100, L501.9520 #### [facility] [address] [place], [address] Nucleated RBC (Bld) [#/Vol] 0 10*3/uL Normal 0-[address] [facility] Comment on above: Performed By: #### L 500.4050, L506.1000, L100.0100, L501.9520 #### [facility] [address] [place], [address] Platelet mean volume (Bld) [Entitic vol] 9.7 fL Normal 6.2-12.[address] [facility] Comment on above: Performed By: #### L 500.4050, L506.1000, L100.0100, L501.9520 #### [facility] [address] [place], [address] Platelets (Bld) [#/Vol] 227 10*3/uL Normal 150-[address] [facility] Comment on above: Performed By: #### L 500.4050, L506.1000, L100.0100, L501.9520 #### [facility] [address] [place], [address] RBC (Bld) [#/Vol] 4.97 10*6/uL Normal 4.2-5.4 [facility] Comment on above: Performed By: #### L 500.4050, L506.1000, L100.0100, L501.9520 #### [facility] [address] [place], [address] RDW SD 40.4 fl Normal 35.1-43.[address] [facility] Comment on above: Performed By: #### L 500.4050, L506.1000, L100.0100, L501.9520 #### [facility] [address] [place], [address] WBC (Bld) [#/Vol] 6.8 10*3/uL Normal 4.4-11.0 [facility] Comment on above: Performed By: #### L 500.4050, L506.1000, L100.0100, L501.9520 #### [facility] [address] [place], [address] Comprehensive Metabolic Prof ilon 07-02-2024 Albumin [Mass/Vol] 3.6 g/dL Normal 3.2-5.0 [facility] Comment on above: Performed By: #### L 500.4050, L506.1000, L100.0100, L501.9520 #### [facility] [address] [place], [address] Albumin/Globulin [Mass ratio] 1.1 {ratio} Normal 0.9-2.[address] [facility] Comment on above: Performed By: #### L 500.4050, L506.1000, L100.0100, L501.9520 #### [facility] [address] [place], [address] ALK P 83 U/L Normal 45-[address] [facility] Comment on above: Performed By: #### L 500.4050, L506.1000, L100.0100, L501.9520 #### [facility] [address] [place], [address] ALT [Catalytic activity/Vol] 24 U/L Normal 13-[address] [facility] Comment on above: Performed By: #### L 500.4050, L506.1000, L100.0100, L501.9520 #### [facility] [address] [place], [address] AST [Catalytic activity/Vol] 19 U/L Normal 15-[address] [facility] Comment on above: Performed By: #### L 500.4050, L506.1000, L100.0100, L501.9520 #### [facility] [address] [place], [address] Bilirubin [Mass/Vol] 1.10 mg/dL High 0.20-1.00 [facility] Comment on above: Result Comment: For patients on eltrombopag therapy, use of Dimension [place] TBIL is not recommended. Performed By: #### L 500.4050, L506.1000, L100.0100, L501.9520 #### [facility] [address] [place], [address] BUN/CRE 21.5 RATIO High 10-[address] [facility] Comment on above: Performed By: #### L 500.4050, L506.1000, L100.0100, L501.9520 #### [facility] [address] [place], [address] CA,Total 9.3 mg/dL Normal 8.5-10.[address] [facility] Comment on above: Performed By: #### L 500.4050, L506.1000, L100.0100, L501.9520 #### [facility] [address] [place], [address] Chloride [Moles/Vol] 101 mmol/L Normal 98-107 [facility] Comment on above: Performed By: #### L 500.4050, L506.1000, L100.0100, L501.9520 #### [facility] [address] [place], [address] CO2 [Moles/Vol] 29.0 mmol/L Normal 21.0-32.[address] [facility] Comment on above: Performed By: #### L 500.4050, L506.1000, L100.0100, L501.9520 #### [facility] [address] [place], [address] Creatinine [Mass/Vol] 0.84 mg/dL Normal 0.55-1.02 [facility] Comment on above: Result Comment: The validity of the calculated GFR GFRAA in patients over 70 years has not been determined. Clinical correlation is essential. Performed By: #### L 500.4050, L506.1000, L100.0100, L501.9520 #### [facility] [address] [place], [address] EST GFR - AA 85 mL/min Normal >[address] [facility] Comment on above: Result Comment: Afri can Citizen [place] GFR Calc Performed By: #### L 500.4050, L506.1000, L100.0100, L501.9520 #### [facility] [address] [place], [address] GAP 2 Low 5-[address] [facility] Comment on above: Performed By: #### L 500.4050, L506.1000, L100.0100, L501.9520 #### [facility] [address] [place], [address] GFR/1.73 sq M.predicted among non-blacks MDRD (S/P/Bld) [Vol rate/Area] 70 mL/min/{1.73_m2} Normal >[address] [facility] Comment on above: Result Comment: Non- GFR Calc Performed By: #### L 500.4050, L506.1000, L100.0100, L501.9520 #### [facility] [address] [place], [address] Globulin (S) [Mass/Vol] 3.2 g/dL Normal 2.2-4.2 [facility] Comment on above: Performed By: #### L 500.4050, L506.1000, L100.0100, L501.9520 #### [facility] [address] [place], [address] Glucose [Mass/Vol] 106 mg/dL Normal 74-106 [facility] Comment on above: Result Comment: Fast ing Glucose result from 100 to 125 mg/dL suggests IMPAIRED HOMEOSTASIS per A.D.A. criteria. Performed By: #### L 500.4050, L506.1000, L100.0100, L501.9520 #### [facility] [address] [place], [address] Potassium [Moles/Vol] 4.7 mmol/L Normal 3.5-5.1 [facility] Comment on above: Performed By: #### L 500.4050, L506.1000, L100.0100, L501.9520 #### [facility] [address] [place], [address] Sodium [Moles/Vol] 132 mmol/L Low 136-145 [facility] Comment on above: Performed By: #### L 500.4050, L506.1000, L100.0100, L501.9520 #### [facility] [address] [place], [address] T PROT 6.8 g/dL Normal 6.4-8.[address] [facility] Comment on above: Performed By: #### L 500.4050, L506.1000, L100.0100, L501.9520 #### [facility] [address] [place], [address] Urea nitrogen [Mass/Vol] 18 mg/dL Normal 7-[address] [facility] Comment on above: Performed By: #### L 500.4050, L506.1000, L100.0100, L501.9520 #### [facility] [address] [place], [address] Thyroid Stim Hormone (TSH)on 07-02-2024 TSH 0.800 uIU/mL Normal 0.358-3.[address] [facility] Comment on above: Performed By: #### L 500.4050, L506.1000, L100.0100, L501.9520 #### [facility] [address] [place], [address] Vitamin D,25 Hydroxyon 07-02 Vitamin D 25-OH 60.2 ng/mL Normal [facility] Comment on above: Result Comment: Mouna min D 25(OH) Status Range Deficiency <20 ng/mL (50nmol/L) Insufficiency 20 - 30 ng/mL (50 - 75 nmol/L) Sufficiency 30 - 100 ng/mL (75 - 250 nmol/L) Toxicity >100 ng/mL (>250 nmol/L) Performed By: #### L 500.4050, L506.1000, L100.0100, L501.9520 #### [facility] [address] [place], [address] Basic Metabolic Profile (BMP )on 01-03-2024 BUN/CRE 17.1 RATIO Normal 10-[address] [facility] Comment on above: Performed By: #### L 500.2500 #### [facility] [address] [place], [address] CA,Total 9.4 mg/dL Normal 8.5-10.[address] [facility] Comment on above: Performed By: #### L 500.2500 #### [facility] [address] [place], [address] Chloride [Moles/Vol] 102 mmol/L Normal 98-107 [facility] Comment on above: Performed By: #### L 500.2500 #### [facility] [address] [place], [address] CO2 [Moles/Vol] 30.0 mmol/L Normal 21.0-32.[address] [facility] Comment on above: Performed By: #### L 500.2500 #### [facility] [address] [place], [address] Creatinine [Mass/Vol] 0.88 mg/dL Normal 0.55-1.02 [facility] Comment on above: Result Comment: The validity of the calculated GFR GFRAA in patients over 70 years has not been determined. Clinical correlation is essential. Performed By: #### L 500.2500 #### [facility] [address] [place], [address] EST GFR - AA 81 mL/min Normal >[address] [facility] Comment on above: Result Comment: Afri can Citizen [place] GFR Calc Performed By: #### L 500.2500 #### [facility] [address] [place], [address] GAP 6 Normal 5-[address] [facility] Comment on above: Performed By: #### L 500.2500 #### [facility] [address] [place], [address] GFR/1.73 sq M.predicted among non-blacks MDRD (S/P/Bld) [Vol rate/Area] 67 mL/min/{1.73_m2} Normal >[address] [facility] Comment on above: Result Comment: Non- GFR Calc Performed By: #### L 500.2500 #### [facility] [address] [place], [address] Glucose [Mass/Vol] 102 mg/dL Normal 74-106 [facility] Comment on above: Result Comment: Fast ing Glucose result from 100 to 125 mg/dL suggests IMPAIRED HOMEOSTASIS per A.D.A. criteria. Performed By: #### L 500.2500 #### [facility] [address] [place], [address] Potassium [Moles/Vol] 4.2 mmol/L Normal 3.5-5.1 [facility] Comment on above: Performed By: #### L 500.2500 #### [facility] [address] [place], [address] Sodium [Moles/Vol] 138 mmol/L Normal 136-145 [facility] Comment on above: Performed By: #### L 500.2500 #### [facility] [address] [place], [address] Urea nitrogen [Mass/Vol] 15 mg/dL Normal 7-[address] [facility] Comment on above: Performed By: #### L 500.2500 #### [facility] [address] [place], [address] CBC W/Diff, Automatedon 07-0 9-2024 Absolute Lymph 1.18 X10 3/uL Normal 0.83-4.[address] [facility] Comment on above: Performed By: #### L 500.4050, L100.0100, L501.9520, L506.1000 #### [facility] [address] [place], [address] Absolute Neut 4.0 X10 3/uL Normal 2.0-7.[address] [facility] Comment on above: Performed By: #### L 500.4050, L100.0100, L501.9520, L506.1000 #### [facility] [address] [place], [address] Basophils/100 WBC (Bld) 0.7 % Normal 0-1 [facility] Comment on above: Performed By: #### L 500.4050, L100.0100, L501.9520, L506.1000 #### [facility] [address] [place], [address] Eosinophils/100 WBC (Bld) 1.5 % Normal 0-[address] [facility] Comment on above: Performed By: #### L 500.4050, L100.0100, L501.9520, L506.1000 #### [facility] [address] [place], [address] Erythrocyte distribution width (RBC) [Ratio] 14.1 % Normal 11.6-14.[address] [facility] Comment on above: Performed By: #### L 500.4050, L100.0100, L501.9520, L506.1000 #### [facility] [address] [place], [address] Hematocrit (Bld) [Volume fraction] 43.0 % Normal 37-[address] [facility] Comment on above: Performed By: #### L 500.4050, L100.0100, L501.9520, [id number] #### [facility] [address] [place], [address] Hemoglobin (Bld) [Mass/Vol] 14.3 g/dL Normal 12.0-15.[address] [facility] Comment on above: Performed By: #### L 500.4050, L100.0100, L501.9520, [id number] #### [facility] [address] [place], [address] IG% 0.300 Normal 0.0-0.[address] [facility] Comment on above: Result Comment: IG% - Immature Granulocytes (promyelocytes, myelocytes and metamyelocytes) > 1% indicates that a LEFT SHIFT is Present. Performed By: #### L 500.4050, L100.0100, L501.9520, [id number] #### [facility] [address] [place], [address] Lymphocytes/100 WBC (Bld) 20.3 % Normal 19-[address] [facility] Comment on above: Performed By: #### L 500.4050, L100.0100, [id number], [id number] #### [facility] [address] [place], [address] MCH (RBC) [Entitic mass] 29.0 pg Normal 27.0-32.[address] [facility] Comment on above: Performed By: #### L 500.4050, L100.0100, [id number], [id number] #### [facility] [address] [place], [address] MCHC (RBC) [Mass/Vol] 33.3 g/dL Normal 32-36 [facility] Comment on above: Performed By: #### L 500.4050, L100.0100, [id number], [id number] #### [facility] [address] [place], [address] MCV (RBC) [Entitic vol] 87.2 fL Normal 81-99 [facility] Comment on above: Performed By: #### L 500.4050, L100.0100, [id number], [id number] #### [facility] [address] [place], [address] Monocytes/100 WBC (Bld) 8.2 % Normal 0-10 [facility] Comment on above: Performed By: #### L 500.4050, L100.0100, [id number], [id number] #### [facility] [address] [place], [address] Neutrophils/100 WBC (Bld) 69.0 % Normal 47-[address] [facility] Comment on above: Performed By: #### L 500.4050, L100.0100, [id number], [id number] #### [facility] [address] [place], [address] Nucleated RBC (Bld) [#/Vol] 0 10*3/uL Normal 0-[address] [facility] Comment on above: Performed By: #### L 500.4050, L100.0100, [id number], L506.1000 #### [facility] [address] [place], [address] Platelet mean volume (Bld) [Entitic vol] 10.3 fL Normal 6.2-12.[address] [facility] Comment on above: Performed By: #### L 500.4050, L100.0100, [id number], [id number] #### [facility] [address] [place], [address] Platelets (Bld) [#/Vol] 224 10*3/uL Normal 150-[address] [facility] Comment on above: Performed By: #### L 500.4050, L100.0100, [id number], [id number] #### [facility] [address] [place], [address] RBC (Bld) [#/Vol] 4.93 10*6/uL Normal 4.2-5.4 [facility] Comment on above: Performed By: #### L 500.4050, L100.0100, [id number], [id number] #### [facility] [address] [place], [address] RDW SD 45.0 fl High 35.1-43.[address] [facility] Comment on above: Performed By: #### L 500.4050, L100.0100, [id number], [id number] #### [facility] [address] [place], [address] WBC (Bld) [#/Vol] 5.8 10*3/uL Normal 4.4-11.0 [facility] Comment on above: Performed By: #### L 500.4050, L100.0100, [id number], L506.1000 #### [facility] [address] [place], [address] Comprehensive Metabolic Prof [facility] 01-01-2024 Albumin [Mass/Vol] 3.6 g/dL Normal 3.2-5.0 [facility] Comment on above: Performed By: #### L 500.4050, L100.0100, [id number], L506.1000 #### [facility] [address] [place], [address] Albumin/Globulin [Mass ratio] 1.1 {ratio} Normal 0.9-2.[address] [facility] Comment on above: Performed By: #### L 500.4050, L100.0100, [id number], L506.1000 #### [facility] [address] [place], [address] ALK P 78 U/L Normal 45-[address] [facility] Comment on above: Performed By: #### L 500.4050, L100.0100, [id number], L506.1000 #### [facility] [address] [place], [address] ALT [Catalytic activity/Vol] 25 U/L Normal 13-[address] [facility] Comment on above: Performed By: #### L 500.4050, L100.0100, [id number], L506.1000 #### [facility] [address] [place], [address] AST [Catalytic activity/Vol] 23 U/L Normal 15-[address] [facility] Comment on above: Performed By: #### L 500.4050, L100.0100, [id number], L506.1000 #### [facility] [address] [place], [address] Bilirubin [Mass/Vol] 1.30 mg/dL High 0.20-1.00 [facility] Comment on above: Result Comment: For patients on eltrombopag therapy, use of Dimension [place] TBIL is not recommended. Performed By: #### L 500.4050, L100.0100, [id number], L506.1000 #### [facility] [address] [place], [address] BUN/CRE 21.3 RATIO High 10-[address] [facility] Comment on above: Performed By: #### L 500.4050, L100.0100, [id number], L506.1000 #### [facility] [address] [place], [address] CA,Total 9.4 mg/dL Normal 8.5-10.[address] [facility] Comment on above: Performed By: #### L 500.4050, L100.0100, [id number], L506.1000 #### [facility] [address] [place], [address] Chloride [Moles/Vol] 102 mmol/L Normal 98-107 [facility] Comment on above: Performed By: #### L 500.4050, L100.0100, [id number], L506.1000 #### [facility] [address] [place], [address] CO2 [Moles/Vol] 27.0 mmol/L Normal 21.0-32.[address] [facility] Comment on above: Performed By: #### L 500.4050, L100.0100, [id number], L506.1000 #### [facility] [address] [place], [address] Creatinine [Mass/Vol] 0.89 mg/dL Normal 0.55-1.02 [facility] Comment on above: Result Comment: The validity of the calculated GFR GFRAA in patients over 70 years has not been determined. Clinical correlation is essential. Performed By: #### L 500.4050, L100.0100, L501.9520, L506.1000 #### [facility] [address] [place], [address] EST GFR - AA 79 mL/min Normal >[address] [facility] Comment on above: Result Comment: Afri can Citizen Of [place] GFR Calc Performed By: #### L 500.4050, L100.0100, [id number], L506.1000 #### [facility] [address] [place], [address] GAP 6 Normal 5-[address] [facility] Comment on above: Performed By: #### L 500.4050, L100.0100, [id number], L506.1000 #### [facility] [address] [place], [address] GFR/1.73 sq M.predicted among non-blacks MDRD (S/P/Bld) [Vol rate/Area] 65 mL/min/{1.73_m2} Normal >[address] [facility] Comment on above: Result Comment: Non- GFR Calc Performed By: #### L 500.4050, L100.0100, [id number], L506.1000 #### [facility] [address] [place], [address] Globulin (S) [Mass/Vol] 3.4 g/dL Normal 2.2-4.2 [facility] Comment on above: Performed By: #### L 500.4050, L100.0100, [id number], L506.1000 #### [facility] [address] [place], [address] Glucose [Mass/Vol] 96 mg/dL Normal 74-106 [facility] Comment on above: Performed By: #### L 500.4050, L100.0100, [id number], L506.1000 #### [facility] [address] [place], [address] Potassium [Moles/Vol] 5.3 mmol/L High 3.5-5.1 [facility] Comment on above: Performed By: #### L 500.4050, L100.0100, [id number], L506.1000 #### [facility] [address] [place], [address] Sodium [Moles/Vol] 135 mmol/L Low 136-145 [facility] Comment on above: Performed By: #### L 500.4050, L100.0100, [id number], L506.1000 #### [facility] [address] [place], [address] T PROT 7.0 g/dL Normal 6.4-8.[address] [facility] Comment on above: Performed By: #### L 500.4050, L100.0100, [id number], L506.1000 #### [facility] [address] [place], [address] Urea nitrogen [Mass/Vol] 19 mg/dL High 7-[address] [facility] Comment on above: Performed By: #### L 500.4050, L100.0100, [id number], L506.1000 #### [facility] [address] [place], [address] Thyroid Stim Hormone (TSH)on 01-01-2024 TSH 1.32 uIU/mL Normal 0.358-3.[address] [facility] Comment on above: Performed By: #### L 500.4050, L100.0100, [id number], L506.1000 #### [facility] [address] [place], [address] Vitamin D,25 Hydroxyon 12-31 Vitamin D 25-OH 54.7 ng/mL Normal [facility] Comment on above: Result Comment: Mouna min D 25(OH) Status Range Deficiency <20 ng/mL (50nmol/L) Insufficiency 20 - 30 ng/mL (50 - 75 nmol/L) Sufficiency 30 - 100 ng/mL (75 - 250 nmol/L) Toxicity >100 ng/mL (>250 nmol/L) Performed By: #### L 500.4050, L100.0100, L501.9520, L506.1000 #### [facility] [address] [place], [address] Laboratory - Microbiology an d Antimicrobial susceptibilityOrdered By: Blue Whalen on 10-09-2023 SARS-CoV-2 (COVID-19) RNA LIAM+probe Ql (Unsp spec) [facility] M100.678on 10-09-2023 M100.678 Normal Reference Ran ge = Negative COV + FLU + RSV PCR GeneXpert Instrument, PCR method SARS-CoV-2 (COVID 19) Negative INFLUENZA A Negative INFLUENZA B Negative RSV PCR Negative Normal [facility] Comment on above: Performed By: #### M [id number] #### [facility] [address] [place], [address] Absolute lymphocyte countOrd ered By: Blue Whalen on 06-28-2023 Lymphocytes Auto (Unsp spec) [#/Vol] 1.14 10*3/uL 0.83-4.[address] [facility] Basophil percentageOrdered B y: Blue Whalen on 06-28-2023 Basophils/100 WBC (Bld) 0.3 % 0-1 [facility] Bilirubin [Mass/Vol] 1.30 mg/dL 0.20-1.00 [facility] Comment on above: For patients on eltr ombopag therapy, use of Dimension [place] TBIL is not recommended. Chloride [Moles/Vol] 101 mmol/L 98-107 [facility] Eosinophils/100 WBC (Bld) 1.8 % 0-[address] [facility] Glucose [Mass/Vol] 98 mg/dL 74-106 [facility] Neutrophils (Bld) [#/Vol] 4.2 10*3/uL 2.0-7.[address] [facility] Neutrophils/100 WBC (Bld) 70.5 % 47-[address] [facility] Potassium [Moles/Vol] 4.5 mmol/L 3.5-5.1 [facility] Protein [Mass/Vol] 6.8 g/dL 6.4-8.2 [facility] Sodium [Moles/Vol] 136 mmol/L 136-145 [facility] WBC (Bld) [#/Vol] 6.0 10*3/uL 4.4-11.0 [facility] Blood erythrocytes count (nu mber/volume)Ordered By: Blue Whalen on 06-28-2023 RBC (Bld) [#/Vol] 4.93 10*6/uL 4.2-5.4 [facility] Blood hemoglobin measurement (mass/volume)Ordered By: Bule Whalen on 06-28-2023 Hemoglobin (Bld) [Mass/Vol] 14.5 g/dL 12.0-15.[address] [facility] Blood lymphocytes/100 leukoc ytesOrdered By: Blue Whalen on 06-28-2023 Lymphocytes/100 WBC (Bld) 18.9 % 19-[address] [facility] Blood monocytes/100 leukocyt esOrdered By: Blue Whalen on 06-28-2023 Monocytes/100 WBC (Bld) 8.3 % 0-10 [facility] Blood platelet mean volumeOr dered By: Blue Whalen on 06-28-2023 Platelet mean volume (Bld) [Entitic vol] 9.7 fL 6.2-12.[address] [facility] Determination of erythrocyte mean corpuscular volume (MCV)Ordered By: Blue Whalen on 06-28-2023 MCV (RBC) [Entitic vol] 87.0 fL 81-99 [facility] Hematocrit Auto (Bld) [Volum e fraction]Ordered By: Blue Whalen on 06-28-2023 Hematocrit (Bld) [Volume fraction] 42.9 % 37-[address] [facility] Laboratory - Chemistry and C hemistry - challengeOrdered [facility]: [facility] ALP [Catalytic activity/Vol] 87 U/L 45-[address] [facility] ALT [Catalytic activity/Vol] 24 U/L 13-[address] [facility] CO2 [Moles/Vol] 28.0 mmol/L 21.0-32.[address] [facility] Globulin (S) [Mass/Vol] 3.3 g/dL 2.2-4.2 [facility] Urea nitrogen/Creatinine [Mass ratio] 16.7 mg/mg 10-[address] [facility] Laboratory - Hematology and Cell countsOrdered By: Blue Whalen on 06-28-2023 Erythrocyte distribution width (RBC) [Entitic vol] 40.8 fL 35.1-43.[address] [facility] Erythrocyte distribution width (RBC) [Ratio] 13.0 % 11.6-14.[address] [facility] Immature granulocytes/100 WBC (Bld) 0.200 % 0.0-0.[address] [facility] Comment on above: IG% - Immature Granu locytes (promyelocytes, myelocytes and metamyelocytes) > 1% indicates that a LEFT SHIFT is Present. MCH (RBC) [Entitic mass] 29.4 pg 27.0-32.[address] [facility] Nucleated RBC/100 WBC (Bld) [Ratio] 0 % 0-[address] [facility] MCHC Auto (RBC) [Mass/Vol]Or dered By: Blue Whalen on 06-28-2023 MCHC (RBC) [Mass/Vol] 33.8 g/dL 32-36 [facility] No Panel InformationOrdered By: Blue Whalen on 06-28-2023 Estimated GFR (MDRD) Amer 73 mL/min >[address] [facility] Comment on above: GFR Calc Estimated GFR (MDRD) Non-Af Amer 60 mL/min >[address] [facility] Comment on above: Non- GFR Calc Thyroid Stimulating Hormone (TSH) 1.50 uIU/mL 0.358-3.[address] [facility] Vitamin D 25-Hydroxy 54.0 ng/mL [facility] Comment on above: Vitamin D 25(OH) Sta tus Range Deficiency <20 ng/mL (50nmol/L) Insufficiency 20 - 30 ng/mL (50 - 75 nmol/L) Sufficiency 30 - 100 ng/mL (75 - 250 nmol/L) Toxicity >100 ng/mL (>250 nmol/L) Platelets bldOrdered By: Blue Whalen on 06-28-2023 Platelets (Bld) [#/Vol] 201 10*3/uL 150-[address] [facility] Serum or plasma albumin prema urement (mass/volume)Ordered By: Blue Whalen on 06-28-2023 Albumin [Mass/Vol] 3.5 g/dL 3.2-5.0 [facility] Serum or plasma albumin/glob ulin mass ratioOrdered By: Blue Whalen on 06-28-2023 Albumin/Globulin [Mass ratio] 1.1 {ratio} 0.9-2.[address] [facility] Serum or plasma calcium prema urement (mass/volume)Ordered By: Blue Whalen on 06-28-2023 Calcium [Mass/Vol] 9.0 mg/dL 8.5-10.1 [facility] Serum or plasma creatinine m easurement (mass/volume)Ordered By: Blue Whalen on 06-28-2023 Creatinine [Mass/Vol] 0.96 mg/dL 0.55-1.02 [facility] Comment on above: The validity of the calculated GFR & GFRAA in patients over 70 years has not been determined. Clinical correlation is essential. Serum or plasma urea nitroge n measurement (mass/volume)Ordered By: Blue Whalen on 06-28-2023 Urea nitrogen [Mass/Vol] 16 mg/dL 7-[address] [facility] Thin prep Papanicolaou smear with manual screeningOrdered By: Blue Whalen on 06-28-2023 Thin prep Papanicolaou smear with manual screening 20 U/L 15-[address] [facility] Thin prep Papanicolaou smear with manual screening 7 5-[address] [facility] Absolute lymphocyte countOrd ered By: Blue Whalen on 12-20-2022 Lymphocytes Auto (Unsp spec) [#/Vol] 1.27 10*3/uL 0.83-4.[address] [facility] Basophil percentageOrdered B y: Blue Whalen on 12-20-2022 Basophils/100 WBC (Bld) 0.4 % 0-1 [facility] Bilirubin [Mass/Vol] 1.20 mg/dL 0.20-1.00 [facility] Comment on above: For patients on eltr ombopag therapy, use of Dimension [place] TBIL is not recommended. Chloride [Moles/Vol] 102 mmol/L 98-107 [facility] Eosinophils/100 WBC (Bld) 1.3 % 0-[address] [facility] Glucose [Mass/Vol] 104 mg/dL 74-106 [facility] Comment on above: Fasting Glucose resu lt from 100 to 125 mg/dL suggests IMPAIRED HOMEOSTASIS per A.D.A. criteria. Neutrophils (Bld) [#/Vol] 5.3 10*3/uL 2.0-7.[address] [facility] Neutrophils/100 WBC (Bld) 74.0 % 47-[address] [facility] Potassium [Moles/Vol] 4.6 mmol/L 3.5-5.1 [facility] Protein [Mass/Vol] 7.2 g/dL 6.4-8.2 [facility] Sodium [Moles/Vol] 134 mmol/L 136-145 [facility] WBC (Bld) [#/Vol] 7.2 10*3/uL 4.4-11.0 [facility] Blood erythrocytes count (nu mber/volume)Ordered By: Blue Whalen on 12-20-2022 RBC (Bld) [#/Vol] 5.03 10*6/uL 4.2-5.4 [facility] Blood hemoglobin measurement (mass/volume)Ordered By: Blue Whalen on 12-20-2022 Hemoglobin (Bld) [Mass/Vol] 14.9 g/dL 12.0-15.[address] [facility] Blood lymphocytes/100 leukoc ytesOrdered By: [facility] Lymphocytes/100 WBC (Bld) 17.6 % 19-[address] [facility] Blood monocytes/100 leukocyt esOrdered By: [facility] on 12-20-2022 Monocytes/100 WBC (Bld) 6.3 % 0-10 [facility] Blood platelet mean volumeOr dered By: Blue Whalen on 12-20-2022 Platelet mean volume (Bld) [Entitic vol] 9.3 fL 6.2-12.[address] [facility] Determination of erythrocyte mean corpuscular volume (MCV)Ordered By: Blue Whalen on 12-20-2022 MCV (RBC) [Entitic vol] 88.1 fL 81-99 [facility] Hematocrit Auto (Bld) [Volum e fraction]Ordered By: [facility] on 12-20-2022 Hematocrit (Bld) [Volume fraction] 44.3 % 37-[address] [facility] Laboratory - Chemistry and C hemistry - challengeOrdered By: Blue Whalen on 12-20-2022 ALP [Catalytic activity/Vol] 89 U/L 45-[address] [facility] ALT [Catalytic activity/Vol] 25 U/L 13-[address] [facility] CO2 [Moles/Vol] 30.0 mmol/L 21.0-32.[address] [facility] Globulin (S) [Mass/Vol] 3.5 g/dL 2.2-4.2 [facility] Urea nitrogen/Creatinine [Mass ratio] 17.4 mg/mg 10-[address] [facility] Laboratory - Hematology and Cell countsOrdered By: Blue Whalen 12-20-2022 Erythrocyte distribution width (RBC) [Entitic vol] 43.3 fL 35.1-43.[address] [facility] Erythrocyte distribution width (RBC) [Ratio] 13.4 % 11.6-14.[address] [facility] Immature granulocytes/100 WBC (Bld) 0.400 % 0.0-0.[address] [facility] Comment on above: IG% - Immature Granu locytes (promyelocytes, myelocytes and metamyelocytes) > 1% indicates that a LEFT SHIFT is Present. MCH (RBC) [Entitic mass] 29.6 pg 27.0-32.[address] [facility] Nucleated RBC/100 WBC (Bld) [Ratio] 0 % 0-[address] [facility] MCHC Auto (RBC) [Mass/Vol]Or dered By: Blue Whalen on 12-20-2022 MCHC (RBC) [Mass/Vol] 33.6 g/dL 32-36 [facility] No Panel InformationOrdered By: lBue Whalen on 12-20-2022 Estimated GFR (MDRD) Amer 77 mL/min >[address] [facility] Comment on above: GFR Calc Estimated GFR (MDRD) Non-Af Amer 64 mL/min >[address] [facility] Comment on above: Non- GFR Calc Thyroid Stimulating Hormone (TSH) 1.46 uIU/mL 0.358-3.[address] [facility] Vitamin D 25-Hydroxy 59.4 ng/mL [facility] Comment on above: Vitamin D 25(OH) Sta tus Range Deficiency <20 ng/mL (50nmol/L) Insufficiency 20 - 30 ng/mL (50 - 75 nmol/L) Sufficiency 30 - 100 ng/mL (75 - 250 nmol/L) Toxicity >100 ng/mL (>250 nmol/L) Platelets bldOrdered By: Blue Whalen on 12-20-2022 Platelets (Bld) [#/Vol] 220 10*3/uL 150-[address] [facility] Serum or plasma albumin prema urement (mass/volume)Ordered By: Blue Whalen on 12-20-2022 Albumin [Mass/Vol] 3.7 g/dL 3.2-5.0 [facility] Serum or plasma albumin/glob ulin mass ratioOrdered By: Blue Whalen on 06-28-2023 Albumin/Globulin [Mass ratio] 1.1 {ratio} 0.9-2.[address] [facility] Serum or plasma calcium prema urement (mass/volume)Ordered By: Blue Whalen on 12-20-2022 Calcium [Mass/Vol] 8.9 mg/dL 8.5-10.1 [facility] Serum or plasma creatinine m easurement (mass/volume)Ordered By: Blue Daniel on 12-20-2022 Creatinine [Mass/Vol] 0.92 mg/dL 0.55-1.02 [facility] Comment on above: The validity of the calculated GFR & GFRAA in patients over 70 years has not been determined. Clinical correlation is essential. Serum or plasma urea nitroge n measurement (mass/volume)Ordered By: Blue Daniel on 12-20-2022 Urea nitrogen [Mass/Vol] 16 mg/dL 7-[address] [facility] Thin prep Papanicolaou smear with manual screeningOrdered By: Blue Daniel on 12-20-2022 Thin prep Papanicolaou smear with manual screening 24 U/L 15-[address] [facility] Thin prep Papanicolaou smear with manual screening 2 5-[address] [facility] Absolute lymphocyte counton 06-12-2022 Lymphocytes Auto (Unsp spec) [#/Vol] 1.24 10*3/uL 0.83-4.[address] [facility] Work Phone: Basophil percentageon 2021 Basophils/100 WBC (Bld) 0.4 % 0-1 [facility] Work Phone: Bilirubin [Mass/Vol] 0.80 mg/dL 0.20-1.00 [facility] Work Phone: Comment on above: For patients on eltr ombopag therapy, use of Dimension [place] TBIL is not recommended. Chloride [Moles/Vol] 100 mmol/L 98-107 [facility] Work Phone: Eosinophils/100 WBC (Bld) 1.5 % 0-[address] [facility] Work Phone: Glucose [Mass/Vol] 84 mg/dL 74-106 [facility] Work Phone: Neutrophils (Bld) [#/Vol] 5.0 10*3/uL 2.0-7.[address] [facility] Work Phone: Neutrophils/100 WBC (Bld) 72.5 % 47-[address] [facility] Work Phone: Potassium [Moles/Vol] 4.2 mmol/L 3.5-5.1 [facility] Work Phone: Protein [Mass/Vol] 6.7 g/dL 6.4-8.2 [facility] Work Phone: Sodium [Moles/Vol] 135 mmol/L 136-145 [facility] Work Phone: WBC (Bld) [#/Vol] 6.9 10*3/uL 4.4-11.0 [facility] Work Phone: Blood erythrocytes count (nu mber/volume)on 06-12-2022 RBC (Bld) [#/Vol] 4.84 10*6/uL 4.2-5.4 [facility] Work Phone: Blood hemoglobin measurement (mass/volume)on 06-12-2022 Hemoglobin (Bld) [Mass/Vol] 14.0 g/dL 12.0-15.[address] [facility] Work Phone: Blood lymphocytes/100 leukoc yteson 06-12-2022 Lymphocytes/100 WBC (Bld) 18.0 % 19-[address] [facility] Work Phone: Blood monocytes/100 leukocyt eson 06-12-2022 Monocytes/100 WBC (Bld) 7.3 % 0-10 [facility] [facility] Work Phone: Blood platelet mean volumeon 06-12-2022 Platelet mean volume (Bld) [Entitic vol] 10.4 fL 6.2-12.[address] [facility] Work Phone: Determination of erythrocyte mean corpuscular volume (MCV)on 06-12-2022 MCV (RBC) [Entitic vol] 88.2 fL 81-99 [facility] Work Phone: [phone] Hematocrit Auto (Bld) [Volum e fraction]on 06-12-2022 Hematocrit (Bld) [Volume fraction] 42.7 % 37-[address] [facility] Work Phone: [phone] Laboratory - Chemistry and C hemistry - challengeon 06-12-2022 ALP [Catalytic activity/Vol] 91 U/L 45-[address] [facility] Work Phone: [phone] ALT [Catalytic activity/Vol] 27 U/L 13-[address] [facility] Work Phone: [phone] CO2 [Moles/Vol] 27.0 mmol/L 21.0-32.[address] [facility] Work Phone: [phone] Globulin (S) [Mass/Vol] 3.3 g/dL 2.2-4.2 [facility] Work Phone: [phone] Urea nitrogen/Creatinine [Mass ratio] 20.7 mg/mg 10-[address] [facility] Work Phone: [phone] Laboratory - Hematology and Cell countson 06-12-2022 Erythrocyte distribution width (RBC) [Entitic vol] 44.0 fL 35.1-43.[address] [facility] Work Phone: [phone] Erythrocyte distribution width (RBC) [Ratio] 13.6 % 11.6-14.[address] [facility] Work Phone: [phone] Immature granulocytes/100 WBC (Bld) 0.300 % 0.0-0.[address] [facility] Work Phone: [phone] Comment on above: IG% - Immature Granu locytes (promyelocytes, myelocytes and metamyelocytes) > 1% indicates that a LEFT SHIFT is Present. MCH (RBC) [Entitic mass] 28.9 pg 27.0-32.[address] [facility] Work Phone: [phone] Nucleated RBC/100 WBC (Bld) [Ratio] 0 % 0-[address] [facility] Work Phone: [phone] MCHC Auto (RBC) [Mass/Vol]on 06-12-2022 MCHC (RBC) [Mass/Vol] 32.8 g/dL 32-36 [facility] Work Phone: No Panel Informationon 06-12 Estimated GFR (MDRD) Amer 77 mL/min >[address] [facility] Work Phone: Comment on above: GFR Calc Estimated GFR (MDRD) Non-Af Amer 64 mL/min >[address] [facility] Work Phone: Comment on above: Non- GFR Calc Thyroid Stimulating Hormone (TSH) 0.83 uIU/mL 0.358-3.[address] [facility] Work Phone: Vitamin D 25-Hydroxy 45.2 ng/mL [facility] Work Phone: Comment on above: Vitamin D 25(OH) Sta tus Range Deficiency <20 ng/mL (50nmol/L) Insufficiency 20 - 30 ng/mL (50 - 75 nmol/L) Sufficiency 30 - 100 ng/mL (75 - 250 nmol/L) Toxicity >100 ng/mL (>250 nmol/L) Platelets bldon 06-12-2022 Platelets (Bld) [#/Vol] 229 10*3/uL 150-[address] [facility] Work Phone: Serum or plasma albumin prema urement (mass/volume)on 06-12-2022 Albumin [Mass/Vol] 3.4 g/dL 3.2-5.0 [facility] Work Phone: Serum or plasma albumin/glob ulin mass ratioon 06-12-2022 Albumin/Globulin [Mass ratio] 1.0 {ratio} 0.9-2.[address] [facility] Work Phone: [phone] Serum or plasma calcium prema urement (mass/volume)on 06-12-2022 Calcium [Mass/Vol] 8.6 mg/dL 8.5-10.1 [facility] Work Phone: [phone] Serum or plasma creatinine m easurement (mass/volume)on 06-12-2022 Creatinine [Mass/Vol] 0.92 mg/dL 0.55-1.02 [facility] Work Phone: Comment on above: The validity of the calculated GFR & GFRAA in patients over 70 years has not been determined. Clinical correlation is essential. Serum or plasma urea nitroge n measurement (mass/volume)on 06-12-2022 Urea nitrogen [Mass/Vol] 19 mg/dL 7-[address] [facility] Work Phone: Thin prep Papanicolaou smear with manual screeningon 06-12-2022 Thin prep Papanicolaou smear with manual screening 18 U/L 15-[address] [facility] Work Phone: Thin prep Papanicolaou smear with manual screening 8 5-[address] [facility] Work Phone: Final Surgical Pathology Rep [facility] 05-29-2019 Final Surgical Pathology Report . Pathology Reports Accession: Collected Date/Time: Received Date/Time: Pathologist: [id number] 05/26/2019 09:00 EST 05/27/2019 09:00 EST MD DILLON ACOSTA Final Surgical Pathology Report DIAGNOSIS: RIGHT KNEE, REPLACEMENT - OSTEOARTHRITIS WITH EBURNATION AND IRREGULAR PITTED ARTICULAR SURFACE. NEGATIVE FOR INFLAMMATION OR NEOPLASIA. COMMENT: [facility] [id number] CLINICAL INFORMATION: RIGHT KNEE PRIMARY OSTEOARTHRITIS SPECIMEN: A RIGHT KNEE BONE GROSS DESCRIPTION: Received- in formalin Labeled with the patient's name Description/dimensions -multiple convex and concave fragmented portions of sanabria-yellow bone/ soft tissue aggregating 8 x 8 x 1.5 cm, articular surfaces are focally eburnated, cartilage is focally nodular, underlying bone is yellow/dense to trabecular RS-1 following decalcification Dictated by Libia JACOBSON ([facility]) MICROSCOPIC DESCRIPTION: Slides reviewed. Electronically Signed by Pathology Report verified by [facility] Electronically signed by DILLON ACOSTA MD Sign out Date: 05/29/2019 14:20 Performing Lab: [id number] [place] [address] ([place]) Comment on above: Performed By: #### S PFR #### [address] [address] PROGRESS NOTESon 05-28-2019 PROGRESS NOTES [facility] PROGRESS NOTE NAME ACCOUNT SEX AGE ADMIT DISCHARGE PT MED. RECORD# NUMBER DATE DATE TYPE KHALIF, [id number] F 69 05/26/19 2 DEJUAN [id number] ROOM: [facility] DATE OF : 1950 DICTATING PHYSICIAN: Stacy Anthony This is a shared split visit with Dr. Cruz who also rounded on and examined the patient today. DATE OF SERVICE: May 27, 2019 SUBJECTIVE: Patient is sitting up in the chair, eating her breakfast. She has had some pain with movement but she states not out of the ordinary or not unexpected. It is tolerable at this time. She has been up with physical therapy and has been doing fairly well. Her plan is to be discharged home today and see outpatient physical therapy at [place]. OBJECTIVE: Vital signs: Temperature 98.1, pulse 60, respirations 14, blood pressure 149/80, oxygen is 95% on room air. Lungs are clear. Respirations are even and nonlabored. Heart rate: Regular rate and rhythm. Dressing to the knee is dry and intact. Patient is alert and oriented. She has good pulses, sensation and motion of her lower extremities. DIAGNOSTIC DATA: Lab results this morning; white count was 13.4, hemoglobin 12.6, hematocrit 35.5, platelets were 218,000. Sodium was 127. Preoperatively it was 133. ASSESSMENT AND PLAN: She is postop day number 1 of a right total knee replacement done yesterday per Dr. Taran Monroe. Plan is for discharge home. She can follow up with home physical therapy. Her hydrochlorothiazide is being held due to low sodium. She will need follow up with that with her primary care provider in the next few weeks. She will see Dr. Taran Monroe in the office as previously scheduled for followup. He has provided prescriptions for the losartan 100 mg daily, as well as pain medications and aspirin twice daily. Dictated By: Stacy Anthony APRN 05/27/19 09:47 JOB #: [id number] Transcribed By: vitaly 05/27/19 12:28 Electronically signed by: Stacy Anthony 05/28/19 13:12 Page 1 of 2 DEJUAN CUADRA Progress Note DEJUAN CUADRA : 1950 Page 2 of 2 DEJUAN CUADRA Progress Note Normal [facility] BMP with eGFRon 05-27-2019 Age - Reported 69 years Normal [facility] Comment on above: Performed By: #### 2 [id number] #### [facility],[address] [place] [address] Anion gap [Moles/Vol] 11 mmol/L Normal 10 - 20 [facility] Comment on above: Performed By: #### 2 30772 #### [facility],[address] [place] [address] Calcium [Mass/Vol] 8.8 mg/dL Normal 8.6 - 10.2 [facility] Comment on above: Performed By: #### 2 11848 #### [facility],[address] [place] [address] Chloride [Moles/Vol] 95 mmol/L Low 98 - 107 [facility] Comment on above: Performed By: #### 2 40855 #### [facility],[address] [place] [address] 21542 CO2 [Moles/Vol] 24.4 mmol/L Normal 21.0 - 31.0 [facility] Comment on above: Performed By: #### 2 40020 #### [facility],[address] [place] [address] Creatinine [Mass/Vol] 0.7 mg/dL Normal 0.6 - 1.2 [facility] Comment on above: Performed By: #### 2 29347 #### [facility],[address] [place] [address] GFR/1.73 sq M predicted among non-blacks MDRD (S/P/Bld) [Vol rate/Area] mL/min/{1.73_m2} Normal 60 - 999 [facility] Comment on above: Result Comment: ACCO RDING TO THE NATIONAL KIDNEY DISEASE EDUCATION PROGRAM(NKDE), A NORMAL eGFR IS A VALUE GREATER THAN OR EQUAL TO 60 ML/MIN/1.73 SQ METERS. CHRONIC KIDNEY DISEASE: <60mL/MIN/1.73 SQ METERS KIDNEY FAILURE: <15mL/MIN/1.73 SQ METERS THIS TEST SHOULD ONLY BE USED FOR PATIENTS 18 YEARS OF AGE AND OLDER. Performed By: #### 2 42830 #### [facility],[address] [place] [address] GFR/1.73 sq M predicted among non-blacks MDRD (S/P/Bld) [Vol rate/Area] Normal [facility] Comment on above: Result Comment: BASI C METABOLIC PANEL Performed By: #### 2 63548 #### [facility],[address] [place] [address] Glucose [Mass/Vol] 142 mg/dL High 74 - 106 [facility] Comment on above: Performed By: #### 2 13317 #### [facility],[address] [place] [address] Potassium [Moles/Vol] 3.6 mmol/L Normal 3.5 - 5.1 [facility] Comment on above: Performed By: #### 2 24542 #### [address] [address] Sodium [Moles/Vol] 127 mmol/L Low 136 - 145 [facility] Comment on above: Performed By: #### 2 84997 #### [facility],[address] [place] [address] Urea nitrogen [Mass/Vol] 14 mg/dL Normal 6 - 20 [facility] Comment on above: Performed By: #### 2 61282 #### [facility],[address] [place] [address] CBC + DIFFon 05-27-2019 Basophils (Bld) [#/Vol] 0.00 x10EE3/UL Normal 0.00 - 0 .10 [facility] Comment on above: Performed By: #### 2 13795 #### [facility],[address] [place] [address] 9[address] Basophils/100 WBC (Bld) 0.1 % Normal 0.0 - 2.0 [facility] Comment on above: Performed By: #### 2 48484 #### [facility],[address] [place] [address] 09444 CBC + DIFF Normal [facility] Comment on above: Result Comment: CBC- COMPLETE BLOOD COUNT Performed By: #### 2 94736 #### [facility],[address] [place] [address] 00259 Eosinophils (Bld) [#/Vol] 0.00 x10EE3/UL Normal 0.00 - 0.50 [facility] Comment on above: Performed By: #### 2 63543 #### [facility],[address] [place] [address] 06283 Eosinophils/100 WBC (Bld) 0.0 % Normal 0.0 - 7.0 [facility] Comment on above: Performed By: #### 2 94676 #### [facility],[address] [place] [address] Erythrocyte distribution width (RBC) [Ratio] 13.6 % Normal 12.0 - 15.6 [facility] Comment on above: Performed By: #### 2 03593 #### [facility],[address] [place] [address] Hematocrit (Bld) [Volume fraction] 35.5 % Normal 34.0 - 46.0 [facility] Comment on above: Performed By: #### 2 51781 #### [facility],[address] [place] [address] 87872 Hemoglobin (Bld) [Mass/Vol] 12.6 g/dL Normal 12.0 - 16.0 [facility] Comment on above: Performed By: #### 2 08480 #### [facility],[address] [place] [address] Lymphocytes (Bld) [#/Vol] 0.50 x10EE3/UL Low 0.80 - 2.80 [facility] Comment on above: Performed By: #### 2 18738 #### [facility],[address] [place] [address] 54717 Lymphocytes/100 WBC (Bld) 3.4 % Low 20.0 - 45.0 [facility] Comment on above: Performed By: #### 2 66793 #### [facility],[address] [place] [address] MANUAL DIFF N/A Normal [facility] Comment on above: Performed By: #### 2 00154 #### [facility],[address] [place] [address] 24997 MCH (RBC) [Entitic mass] 29 pg Normal 27 - 33 [facility] Comment on above: Performed By: #### 2 64713 #### [facility],[address] [place] [address] MCHC (RBC) [Mass/Vol] 36 X10 3 Normal 32 - 36 [facility] Comment on above: Performed By: #### 2 89765 #### [facility],[address] [place] [address] MCV (RBC) [Entitic vol] 82 fL Normal 80 - 99 [facility] Comment on above: Performed By: #### 2 95918 #### [facility],[address] [place] [address]99 Monocytes (Bld) [#/Vol] 0.60 x10EE3/UL Normal 0.20 - 1 .00 [facility] Comment on above: Performed By: #### 2 07402 #### [facility],[address] [place] [address] 364[address] MONOS % 4.1 % Normal 0.0 - 10.0 [facility] Comment on above: Performed By: #### 2 26301 #### [facility],[address] [place] [address] 600[address] Morphology Bonilla (Bld) [Interp] N/A Normal [facility] Comment on above: Performed By: #### 2 41296 #### [facility],[address] [place] [address] Neutrophils (Bld) [#/Vol] 12.40 x10EE3/UL High 1.50 - 7.10 [facility] Comment on above: Performed By: #### 2 64761 #### [address] [address] Neutrophils/100 WBC (Bld) 92.4 % High 46.0 - 76.0 [facility] Comment on above: Performed By: #### 2 35436 #### [address] [address] Platelet mean volume (Bld) [Entitic vol] 7.9 fL Normal 6.6 - 10.5 [facility] Comment on above: Result Comment: AUTO MATED DIFFERENTIAL Performed By: #### 2 44599 #### [address] [address] Platelets (Bld) [#/Vol] 218 x10EE3/UL Normal 150 - 450 [facility] Comment on above: Performed By: #### 2 33946 #### [address] [address] RBC (Bld) [#/Vol] 4.34 x 10EE6/UL Normal 4.10 - 5.30 [facility] Comment on above: Performed By: #### 2 25165 #### [address] [address] WBC (Bld) [#/Vol] 13.4 x 10EE3/UL High 4.5 - 10.8 [facility] Comment on above: Performed By: #### 2 77281 #### [address] [address] OPERATIVE PROCEDURESon 05-27 OPERATIVE PROCEDURES [facility] OPERATIVE REPORT NAME ACCOUNT SEX AGE ADMIT DISCHARGE PT MED. RECORD# NUMBER DATE DATE TYPE KHALIF, [id number] F 69 05/26/19 1 DEJUAN [id number] ROOM: [facility] DATE OF : 1950 DICTATING PHYSICIAN: Taran Monroe DATE OF SURGERY: May 26, 2019 PATIENT TYPE: Observation. PREOPERATIVE DIAGNOSIS: Right knee severe primary osteoarthritis. POSTOPERATIVE DIAGNOSIS: Right knee severe primary osteoarthritis. TITLE OF OPERATION: Right total knee replacement. SURGEON: Taran Monroe MD LIFE SKILLS COORDINATOR: Court Vogel P.A.-C., [place] ANESTHETIC: Spinal with adductor canal nerve block. ANESTHESIA PROVIDER: Dr. Morales SPECIAL MEDICATIONS: Ancef, Decadron, Tranexamic acid. COMPLICATIONS: None. ESTIMATED BLOOD LOSS: 50 INDICATIONS FOR SURGERY: The patient is a 69-year-old female with a history of right knee pain who failed conservative measures. She had a previous left knee replacement. She wished to have a right knee placement. She was cleared for surgery by the medical team. Findings showed severe arthritis of the right knee. She underwent the standard anterior approach to the knee followed by cemented conformist total knee replacement using a pre-made tibia and femur. For the patella, we used a 32 x 6 symmetric patella button. Inserts were 9.9 laterally and 6.1 medially. The shape reproduced her anatomy nicely. She underwent standard wound closure in layers. assistant wrestling coach, physician kitchen assistant, was utilized throughout the entire procedure. Page 1 of 3 DEJUAN CUADRA Operative Report DEJUAN KHALIF : 1950 She helped with patient positioning, hold the limb, and holding the retractor. she helped with exposure throughout. She helped with alignment and positioning of our cutting guides and components, cementation of components, wound closure, bandage application, and patient transfer. Without surgical tech, surgical time would have been increased and surgical outcome could have been less optimal. DESCRIPTION OF OPERATION: The patient was taken to the OR and transferred to our table. She was given a spinal anesthetic and adductor canal nerve block planned for postoperatively. Ancef was given IV preoperatively as well as tranexamic acid. Decadron was given. A well padded tourniquet was applied to the right upper thigh. The left lower extremity had JULIANA hose and SCD on throughout. The right lower extremity was prepped, padded, and draped in the usual orthopedic sterile fashion for the procedure. We injected our pain relieving solution of Ropivacaine, Epinephrine, and Duramorph to the anterior superior knee. The wound was exsanguinated and tourniquet applied to 225 mmHg. A midline incision was carried through the skin, subcutaneous tissue, and branched down to the extensor mechanism. A needle peripatellar arthrotomy was carried out. Straw colored joint fluid was evacuated. A sleeve of tissue was raised off the upper medial tibia. Degenerative medial and lateral menisci were removed. The ACL was removed. The PCL was preserved. Collateral ligaments were preserved. We palpated and felt no obvious abnormal cystic masses at the anterolateral knee. Typical straw colored joint fluid was evacuated from the joint. Tissue was taken off the anterior aspect of the distal femur. Cutting guide system was used for the femur. We did standard zero cut off the distal femur and used pre-made cutting blocks for the anterior, posterior, and chamfer cuts with the help of assistants holding the limb and holding the retractors and helping stabilizing our blocks. On the tibia, we used pre-made tibial cutting guides, external alignment guide as well, 5 degree posterior slope was built in. That was held in place with three pins. Cut was carried out with a saw. Again assistants protected the soft tissues. Bone spurs were removed posteromedial and posterior aspect of the femur. Femoral trial was placed. Tibial trial was placed and ultimately pinned in place with a drill and punch used on the upper tibia once it was in good position and good alignment. Sclerotic bone on the upper tibia was drilled. The patella was everted and measured and the appropriate section was carried out leaving us about a 15 mm thick patella. We trialed and decided on a 32 x 6 symmetric patella. Drill guide was held by the surgeon and kitchen assistant drilled through that with three holes. Trial was placed and removed. The wound was thoroughly irrigated and cleaned and dried. Bleeding was controlled at the back of the knee with a [place]. Irrisept solution was utilized throughout the knee. We injected the back of the knee with our pain relieving solution of Ropivacaine, Epinephrine, and Duramorph. Two full batches of bone cement were mixed. The knee was thoroughly irrigated, cleaned, and dried. When the cement was at the appropriate texture, we cemented on the tibia then femur and then patella. The patella was clamped in position. Everything was hammered in position. Excess bone cement was removed. The inserts were placed being 6A inserts. The knee was held in full extension while the cement hardened. Once the cement was fully hardened, the tourniquet was let down. Bleeding was controlled with a [place]. Wound was again thoroughly irrigated. We retrialed and decided on the 6C inserts. This corresponded with 6.1 mm of medial Page 2 of 3 DEJUAN CUADRA Operative Report DEJUAN CUADRA : 1950 and 9.9 mm of lateral polyethylene. Each was sequentially placed in that compartment and was thoroughly irrigated, cleaned, and dried. The knee was flexed and extended and patella tracked very nicely. Irrisept solution was utilized throughout the knee. Arthrotomy was repaired with a #1 Vicryl about the patella and running #2 Stratafix, and a mid-layer of 0 Vicryl, inverted 2-0 Vicryl, skin Steri-Strips, Mepilex dressing, HAO wrap, JULIANA hose, and SCDs. The patient will be brought in as observation. Hospitalist consulted. Aspirin for DVT prevention. Ancef perioperatively and hopefully ready for discharge to home tomorrow. Dictated By: Taran Monroe MD 05/26/19 14:28 JOB #: [id number] Transcribed By: 05/26/19 19:35 Electronically signed by: E-SIGN DR. TARAN MONROE M.D. 05/27/19 07:55 Page 3 of 3 DEJUAN CUADRA Operative Report Normal [facility] KNEE 2 VIEWS RTon 05-26-2019 KNEE 2 VIEWS RT [place] [id number] Patient: DEJUAN CUADRA Phone#: : 1950 Age: 69 Gender: F Pt. Type: In Account: [id number] Location: [id number] Ordering: TARAN MONROE Exam Date: 05/26/2019/15:15 Family Phys: BLUE WHALEN Charge Code: [id number] Physician: Stafford Order #: [id number] DLP Dose#: PROCEDURE: X-RAY KNEE RT 2 VIEWS COMPARISON: None. INDICATIONS: Right knee replaced FINDINGS: BONES: Total knee prosthesis is present. The adjacent bony architecture is intact. SOFT TISSUES: Postoperative soft tissue air is present. EFFUSION: None visible. OTHER: Negative. CONCLUSION: 1. Total knee prosthesis is present. Dictated by: Larissa Boles MD on 05/26/2019 at 15:45 Approved by: Larissa Boles MD on 05/26/2019 at 15:45 Normal [facility] BMP with eGFRon 05-09-2019 Age - Reported 69 years Normal [facility] Comment on above: Performed By: #### 2 67777 #### [facility],[address] [place] [address]22 Anion gap [Moles/Vol] 10 mmol/L Normal 10 - 20 [facility] Comment on above: Performed By: #### 2 10445 #### [facility],[address] [place] [address]57 Calcium [Mass/Vol] 9.3 mg/dL Normal 8.6 - 10.2 [facility] Comment on above: Performed By: #### 2 31268 #### [facility],[address] [place] [address] 6[address]81 Chloride [Moles/Vol] 97 mmol/L Low 98 - 107 [facility] Comment on above: Performed By: #### 2 94597 #### [facility],[address] [place] [address]64 CO2 [Moles/Vol] 29.9 mmol/L Normal 21.0 - 31.0 [facility] Comment on above: Performed By: #### 2 85173 #### [facility],[address] [place] [address] 72368 Creatinine [Mass/Vol] 0.8 mg/dL Normal 0.6 - 1.2 [facility] Comment on above: Performed By: #### 2 02384 #### [facility],[address] [place] [address] 06663 GFR/1.73 sq M predicted among non-blacks MDRD (S/P/Bld) [Vol rate/Area] Normal [facility] Comment on above: Result Comment: BASI C METABOLIC PANEL Performed By: #### 2 53836 #### [facility],[address] [place] [address] 45776 GFR/1.73 sq M predicted among non-blacks MDRD (S/P/Bld) [Vol rate/Area] mL/min/{1.73_m2} Normal 60 - 999 [facility] Comment on above: Result Comment: ACCO RDING TO THE NATIONAL KIDNEY DISEASE EDUCATION PROGRAM(NKDE), A NORMAL eGFR IS A VALUE GREATER THAN OR EQUAL TO 60 ML/MIN/1.73 SQ METERS. CHRONIC KIDNEY DISEASE: <60mL/MIN/1.73 SQ METERS KIDNEY FAILURE: <15mL/MIN/1.73 SQ METERS THIS TEST SHOULD ONLY BE USED FOR PATIENTS 18 YEARS OF AGE AND OLDER. Performed By: #### 2 31678 #### [address] [address] Glucose [Mass/Vol] 117 mg/dL High 74 - 106 [facility] Comment on above: Performed By: #### 2 13641 #### [address] [address] Potassium [Moles/Vol] 3.8 mmol/L Normal 3.5 - 5.1 [facility] Comment on above: Performed By: #### 2 89842 #### [address] [address] Sodium [Moles/Vol] 133 mmol/L Low 136 - 145 [facility] Comment on above: Performed By: #### 2 48168 #### [address] [address] Urea nitrogen [Mass/Vol] 14 mg/dL Normal 6 - 20 [facility] Comment on above: Performed By: #### 2 [id number] #### [address] [address] CBC (NO DIFF)on 05-09-2019 CBC (NO DIFF) Normal [facility] Comment on above: Result Comment: CBC( WITHOUT DIFFERENTIAL) Performed By: #### 2 [id number] #### [address] [address] Erythrocyte distribution width (RBC) [Ratio] 13.5 % Normal 12.0 - 15.6 [facility] Comment on above: Performed By: #### 2 [id number] #### [facility],[address] [place] [address] Hematocrit (Bld) [Volume fraction] 40.4 % Normal 34.0 - 46.0 [facility] Comment on above: Performed By: #### 2 76435 #### [facility],[address] [place] [address] Hemoglobin (Bld) [Mass/Vol] 13.9 g/dL Normal 12.0 - 16.0 [facility] Comment on above: Performed By: #### 2 81547 #### [facility],[address] [place] [address] MCH (RBC) [Entitic mass] 29 pg Normal 27 - 33 [facility] Comment on above: Performed By: #### 2 64815 #### [facility],[address] [place] [address] MCHC (RBC) [Mass/Vol] 34 X10 3 Normal 32 - 36 [facility] Comment on above: Performed By: #### 2 35327 #### [facility],[address] [place] [address] MCV (RBC) [Entitic vol] 84 fL Normal 80 - 99 [facility] Comment on above: Performed By: #### 2 21652 #### [facility],[address] [place] [address] Platelet mean volume (Bld) [Entitic vol] 7.3 fL Normal 6.6 - 10.5 [facility] Comment on above: Performed By: #### 2 41058 #### [facility],[address] [place] [address] Platelets (Bld) [#/Vol] 276 x10EE3/UL Normal 150 - 450 [facility] Comment on above: Performed By: #### 2 03638 #### [facility],[address] [place] [address] RBC (Bld) [#/Vol] 4.83 x 10EE6/UL Normal 4.10 - 5.30 [facility] Comment on above: Performed By: #### 2 18505 #### [facility],[address] [place] [address] WBC (Bld) [#/Vol] 6.9 x 10EE3/UL Normal 4.5 - 10.8 [facility] Comment on above: Performed By: #### 2 78015 #### [facility],[address] [place] [address] LOWER EXTREMITY RT WOon 0 03-24-2019 CT LOWER EXTREMITY RT WO [facility] [place] [address] Patient: DEJUAN CUADRA Phone#: : 1950 Age: 69 Gender: F Pt. Type: Out Account: [id number] Location: Ordering: TARAN MONROE Exam Date: 03/24/2019/11:22 Family Phys: BLUE WHALEN Charge Code: 544170 Physician: Stafford Order #: [id number] DLP Dose#: PROCEDURE: CT LOWER EXTREMITY RT WO CONTRAST COMPARISON: None. INDICATIONS: Conformis TECHNIQUE: Multi-planar CT images were created without intravenous contrast. All CT scans at this facility use dose modulation, iterative reconstruction, and/or weight based dosing when appropriate to reduce radiation dose to as low as reasonably achievable. IV CONTRAST: No IV contrast used,ml TOTAL DOSE: 34.7 CTDIvol(mGy) FINDINGS: BONES: Moderate degenerative changes of the knee are present. There is narrowing at the medial compartment. Osteophyte are present at the medial femoral condyle and tibial plateau and at the lateral femoral condyle and tibial plateau. There is narrowing of the lateral patellofemoral joint space. There is a loose body versus osteophyte projecting into the lateral compartment. SOFT TISSUES: Negative. No visible soft tissue swelling. EFFUSION: A small joint effusion is present. OTHER: Negative. CONCLUSION: 1. Moderate degenerative changes of the knee are present. There is an osteophyte versus loose body projecting into the lateral compartment. Dictated by: Larissa Boles MD on 03/24/2019 at 16:24 Approved by: Larissa Boles MD on 03/24/2019 at 16:24 Normal [facility] CHEST 2 VIEWSon 02-11-2019 CHEST 2 VIEWS [place] [address] Patient: DEJUAN CUADRA Phone#: : 1950 Age: 69 Gender: F Pt. Type: Out Account: [id number] Location: Ordering: [facility] Exam Date: 02/11/2019/12:26 Family Phys: BLUE WHALEN Charge Code: 632977 Physician: Stafford Order #: [id number] DLP Dose#: PROCEDURE: X-RAY CHEST 2 VIEWS COMPARISON: None. INDICATIONS: Surgery clearance FINDINGS: LUNGS: Normal. No significant pulmonary parenchymal abnormalities. VASCULATURE: Normal. Unremarkable pulmonary vasculature. CARDIAC: Normal. No cardiac silhouette abnormality or cardiomegaly. MEDIASTINUM: Normal. No visible mass or adenopathy. PLEURA: Right apical pleural thickening is present. BONES: Thoracolumbar scoliosis is present. OTHER: Negative. CONCLUSION: No acute disease. Dictated by: Larissa Boles MD on 02/11/2019 at 12:36 Approved by: Larissa Boles MD on 02/11/2019 at 12:36 Normal [facility] Encounters Encounter Date Encounter Type Care Provider Facility Start: 07-04-2024 End: 07-04-2024 ambulatory Blue [facility] Daniel Facility:[facility] Start: 07-02-2024 End: 07-02-2024 ambulatory Blue [facility] Daniel Facility:[facility] Start: 01-03-2024 End: 01-03-2024 ambulatory Blue Chi Daniel Facility:[facility] Start: 01-01-2024 End: 01-01-2024 ambulatory Blue Chi Daniel Facility:[facility] Start: 10-09-2023 End: 10-09-[address] [facility] Work Phone: Start: 10-09-2023 End: 10-09-2023 Patient encounter procedure [facility]/Neurology Work Phone: Start: 10-09-2023 End: 10-09-2023 ambulatory [place] Facility:[facility] Start: 07-03-2023 End: 07-03-[address] [facility] Work Phone: Start: 07-03-2023 End: 07-03-2023 Patient encounter procedure [facility]Outpatient Breast Imaging Work Phone: Start: 06-28-2023 End: 06-28-[address] [facility] Work Phone: Start: 06-28-2023 End: 06-28-2023 [facility] Start: 12-20-2022 End: 12-20-[address] [facility] Work Phone: Start: 12-20-2022 End: 12-20-2022 Patient encounter procedure [facility]Labor[facility] Work Phone: Start: 06-15-2022 End: 06-15-[address] [facility] Work Phone: Start: 06-15-2022 End: 06-15-2022 Patient encounter procedure [facility] Start: 06-12-2022 End: 06-12-[address] [facility] Work Phone: Start: 06-12-2022 End: 06-12-2022 [facility] Start: 05-26-2019 End: 05-27-2019 Patient encounter procedure TARAN MONROE [facility] Start: 05-09-2019 Encounter for other preprocedural examination TARAN MONROE [facility] Start: 05-09-2019 End: 05-09-2019 Patient encounter procedure TARAN MONROE [facility] Start: 03-24-2019 End: 03-24-2019 Patient encounter procedure TARAN MONROE [facility] Start: 02-11-2019 Encounter for prepro cedural cardiovascular examination [facility] Start: 02-11-2019 End: 02-11-2019 Patient encounter procedure TARAN MONROE [facility] Encounter for other preprocedural examination [facility] Encounter for prepro cedural cardiovascular examination T[facility] Procedures Date Procedure Procedure Detail Performing Clinician Start: 10-09-2023 SARS-CoV-2, Influenz a & RSV (PCR) Start: 07-03-2023 Screening mammography Start: 06-15-2022 Screening mammography Plan of Treatment Date Care Activity Detail Author Start: 07-03-2023 MG Breast - bilatera l Screening [facility] Start: 07-03-2023 Screening mammography NOVA MIDDLETON M (CAD)W/POONAM BILAT [facility] Immunizations Immunization Date Immunization Notes Care Provider Golden griffin 04-21-2015 influenza, injectabl e, quadrivalent, preservative free [facility] 04-21-2015 influenza, seasonal, injectable [facility] Payers Date Payer Category [employer]ayer [employer] ( and others) [id number] 2023 Self-pay [id number] 2014 Medicare [id number] 1950 Unknown [id number] 1950 Unknown [id number] 1950 Unknown [id number] 1950 Unknown [id number] [employer] ( and others) [id number] Unknown [id number] Unknown [id number] Unknown [id number] Unknown [id number] Unknown [id number] Social History Date Type Detail Facility Start: 04-19-2015 End: 04-19-2015 Tobacco smoking status NHIS Unknown if ever smoked [facility] Start: 04-19-[address] [facility] Start: 04-19-[address] [facility] Start: 04-19-2015 Spouse/ Signif icant Other [facility] Start: 04-19-2015 Non-smoker [facility] Start: 1950 Sex Assigned At Female W [facility] Evaluation note Note Date & Type Note Facility Evaluation note No assessment information availa ble [facility] Work Phone: Summary Purpose Family History No Family History Records Found Relationship Condition Age at Onset Recorded Date/T marti Unknown Family History?No pe rtinent history Unknown April 19, 2015 2:47pm Family History?No pe rtinent history Unknown April 19, 2015 2:47pm Relationship Condition Age at Onset Recorded Date/T marti Unknown Family History?No pe rtinent history Unknown April 19, 2015 3:47pm Family History?No pe rtinent history Unknown April 19, 2015 3:47pm Advance Directives No Advanced Directives Records Found Advance Directive Response Recorded Date/ Time Advance Directives Yes April 19, 2015 3:33pm Living Will Yes April 19 3:33pm Power of Medical Lab Scientist Yes April 19, 2015 3:33pm Advance Directive Response Recorded Date/ Time Advance Directives Yes April 19, 2015 4:33pm Living Will Yes April 19 4:33pm Power of Medical Lab Scientist Yes April 19, 2015 4:33pm Hospital Course Note [facility] DISCHARGE SUMMARY NAME ACCOUNT SEX AGE ADMIT DISCHARGE PT MED. RECORD# NUMBER DATE DATE TYPE DEJUAN CUADRA [id number] F 69 05/26/19 2 [id number] ROOM: 311 DATE OF : 1950 DICTATING [...] 0- 50 degrees (more content not included)... Chief Complaint and Reason for Visit Chief Complaint SCREENING Chief Complaint SCREENING CHILLS WITHOUT FEVER Additional Source Comments INFORMATION SOURCE (unrecogn ized section and content) DATE CREATED AUTHOR 05/29/2019 [facility] DATE CREATED AUTHOR AUTHOR'S ORGANIZ ATION 05/30/2019 [facility] DATE CREATED AUTHOR AUTHOR'S ORGANIZ ATION 08/02/[address] [facility] Goals (unrecognized section and content) Goals may be documented in a n alternate sectionGoals may be documented in an alternate sectionGoals may be documented in an alternate sectionGoals may be documented in an alternate sectionGoals may be documented in an alternate sectionGoals may be documented in an alternate section Care Teams (unrecognized sec tion and content) Team Status: Active Member Role Status Dates Dr. Blue Whalen MD Family Provider Active Dr. Blue Whalen MD Primary Care Provider Active Team Status: Inactive Member Role Status Dates Dr. Blue Whalen MD Primary Care Provi jesus, Attending Provider, Referring Provider Active Team Status: Inactive Member Role Status Dates Dr. Blue Whalen MD Primary Care Provider, Attending Provider Active Team Status: Active Member Role Status Dates Dr. Blue Whalen MD Primary Care Provi jesus, Attending Provider, Referring Provider Active FOR RECORDS PERTAINING TO PATIENTS WHO ARE [...] BE BASED ON THE PRIMARY CLINICAL RECORDS. [facility]. provides no warranty or guarantee of the accuracy or completeness of information in this document.
== END | disposition home or self-care (01) ==
LOC: POLAB3 10:27
PROVIDERS: PCP Family Medicine Geriatric Medicine; Visit Provider Family Medicine Geriatric Medicine
DX: I10 Essential (primary) hypertension (principal); E55.9 Vitamin D deficiency, unspecified
CPT/HCPCS: 36415; 80053; 82306; 84443; 85025